=== PATIENT | female | born 1955 | race Caucasian/White ===

== ENCOUNTER 2020-09-10 00:16 | Emergency (ER) | payer BC ==
[2020-09-10 01:20] LABS: Basophils % 1.4 % (0-1.3); Hematocrit 40.8 % (36.0-45.0); Lymphocytes % 44.7 % (15.3-44.8); MPV 9.7 fL (7.6-11.3); Protime INR 1.03; RBC Red Blood Cell Count 5.04 M/uL (3.86-4.86)
[2020-09-10 01:36] LABS: ALT/SGPT 27 U/L (12-78); AST/SGOT 23 U/L (15-37); Albumin 3.9 g/dL (3.4-5.0); Alkaline Phosphatase 91 U/L (45-117); BUN Blood Urea Nitrogen 17 mg/dL (7-18); Bicarbonate 28 mmol/L (21-32); Bilirubin Direct < 0.1 mg/dL (0-0.2); Bilirubin Total 0.3 mg/dL (0.2-1.0); Glucose Level 119 mg/dL (74-106); Lipase 86 U/L (73-393); Magnesium 2.2 mg/dL (1.8-2.4); NT PRO-BNP 75 pg/mL (<125); Potassium 3.8 mmol/L (3.5-5.1); Protein, Total 7.2 g/dL (6.4-8.2); Sodium Level 140 mmol/L (136-145); Troponin (Emerg Dept Use Only) < 0.02 ng/mL (0.0-0.045)
--- NOTE | 2020-09-10 04:52 | EDPHYS ---
Physician Documentation [facility] Name: Mariel Aburto Age: 64 yrs Sex: Female : 1955 Arrival Date: 09/10/2020 Time: 00:17 Bed 6 Private MD: ED Physician Rj Smith HPI: 09/10 00:59 This 64 yrs old Female presents to ER via Ambulatory with complaints of Chest pkl Pain. 00:59 The patient or guardian reports chest pain that is located primarily in the substernal pkl area. Onset: last night. The pain does not radiate. Associated signs and symptoms: Pertinent positives: abdominal pain. The chest pain is described as aching, intermittent. Historical: - Allergies: 00:34 Sulfa (Sulfonamide Antibiotics); bb - Home Meds: 00:34 valsartan oral oral [Active]; bb - PMHx: 00:34 Hypertension; bb - PSHx: 00:34 None; bb - Immunization history:: Adult Immunizations up to date, Client reports receiving the 2nd dose of the Covid vaccine. - Social history:: Smoking status: Patient denies any tobacco usage or history of. Patient/guardian denies using alcohol, street drugs. ROS: 00:59 Eyes: Negative for injury, pain, redness, and discharge, ENT: Negative for injury, pkl pain, and discharge, Neck: Negative for injury, pain, and swelling. 00:59 Cardiovascular: Positive for chest pain. 00:59 Respiratory: Positive for cough, with no reported sputum. 00:59 Abdomen/GI: Positive for abdominal pain, of the right upper quadrant and left upper quadrant. 00:59 Back: Negative for acute changes. 00:59 : Negative for urinary symptoms. 00:59 MS/extremity: Negative for acute changes. 00:59 Skin: Negative for rash. 00:59 Neuro: Negative for altered mental status, loss of consciousness. Exam: 00:59 Head/Face: Normocephalic, atraumatic. Eyes: Pupils equal round and reactive to light, pkl extra-ocular motions intact. Lids and lashes normal. Conjunctiva and sclera are non-icteric and not injected. Cornea within normal limits. Periorbital areas with no swelling, redness, or edema. ENT: Nares patent. No nasal discharge, no septal abnormalities noted. Tympanic membranes are normal and external auditory canals are clear. Oropharynx with no redness, swelling, or masses, exudates, or evidence of obstruction, uvula midline. Mucous membranes moist. Neck: Trachea midline, no thyromegaly or masses palpated, and no cervical lymphadenopathy. Supple, full range of motion without nuchal rigidity, or vertebral point tenderness. No Meningismus. Chest/axilla: Normal chest wall appearance and motion. Nontender with no deformity. No lesions are appreciated. Cardiovascular: Regular rate and rhythm with a normal S1 and S2. No gallops, murmurs, or rubs. Normal PMI, no JVD. No pulse deficits. Respiratory: Lungs have equal breath sounds bilaterally, clear to auscultation and percussion. No rales, rhonchi or wheezes noted. No increased work of breathing, no retractions or nasal flaring. Abdomen/GI: Soft, non-tender, with normal bowel sounds. No distension or tympany. No guarding or rebound. No evidence of tenderness throughout. Back: No spinal tenderness. No costovertebral tenderness. Full range of motion. Skin: Warm, dry with normal turgor. Normal color with no rashes, no lesions, and no evidence of cellulitis. MS/ Extremity: Pulses equal, no cyanosis. Neurovascular intact. Full, normal range of motion. Neuro: Awake and alert, GCS 15, oriented to person, place, time, and situation. Cranial nerves II-XII grossly intact. Motor strength 5/5 in all extremities. Sensory grossly intact. Cerebellar exam normal. Normal gait. Vital Signs: 00:31 BP 179 / 75; Pulse 73; Resp 20 S; Temp 98(O); Pulse Ox 99% on R/A; Weight 79.38 kg (R); bb Height 5 ft. 5 in. (165.10 cm) (R); Pain 0/10; 01:00 BP 155 / 76; Pulse 68; Resp 16 S; Pulse Ox 97% on R/A; ad5 01:45 BP 146 / 77; Pulse 71; Resp 16 S; Pulse Ox 96% on R/A; ad5 03:02 BP 167 / 82; Pulse 73; Resp 16 S; Pulse Ox 100% on R/A; ad5 04:17 BP 149 / 83; Pulse 68; Resp 16 S; Pulse Ox 100% on R/A; ad5 04:59 BP 131 / 70; Pulse 68; Resp 16 S; Pulse Ox 97% on R/A; ad5 00:31 Body Mass Index 29.12 (79.38 kg, 165.10 cm) bb MDM: 00:51 Patient medically screened. pkl 04:46 Data reviewed: vital signs, nurses notes, lab test result(s), EKG, radiologic studies, pkl CT scan, plain films. 04:46 ED course: Patient feeling better. Discussed lab, EKG and imaging studies with patient. pkl Advised to follow up with PCP and Medical Care Administrator in 2 to 3 days. To return in necessary. Patient understood instructions. 09/10 00:58 Order name: Basic Metabolic Panel pkl 09/10 00:58 Order name: CBC with Diff; Complete Time: 01:29 pkl 09/10 00:58 Order name: LFT's; Complete Time: 01:46 pkl 09/10 00:58 Order name: Magnesium; Complete Time: 01:46 pkl 09/10 00:58 Order name: NT PRO-BNP; Complete Time: 01:46 pkl 09/10 00:58 Order name: PT-INR; Complete Time: 01:29 pkl 09/10 00:58 Order name: Troponin (emerg Dept Use Only); Complete Time: 01:46 pkl 09/10 00:58 Order name: XRAY Chest (1 view) pkl 09/10 00:58 Order name: D-Dimer; Complete Time: 01:29 pkl 09/10 00:59 Order name: Basic Metabolic Panel; Complete Time: 01:46 EDMS 09/10 00:59 Order name: Lipase; Complete Time: 01:46 pkl 09/10 02:27 Order name: Troponin (emerg Dept Use Only); Complete Time: 03:51 pkl 09/10 04:43 Order name: SARS-COV-2 RT PCR; Complete Time: 04:44 EDMS 09/10 00:58 Order name: EKG; Complete Time: 00:59 pkl 09/10 00:58 Order name: Cardiac monitoring; Complete Time: 00:59 pkl 09/10 00:58 Order name: EKG - Nurse/Tech; Complete Time: 00:59 pkl 09/10 00:58 Order name: IV Saline Lock; Complete Time: 00:59 pkl 09/10 00:58 Order name: Labs collected and sent; Complete Time: 00:59 pkl 09/10 00:58 Order name: O2 Per Protocol; Complete Time: 04:56 pkl 09/10 00:58 Order name: O2 Sat Monitoring; Complete Time: 00:59 pkl 09/10 01:49 Order name: CT Abd/Pelvis - IV Contrast Only pkl 09/10 01:49 Order name: CT Chest For PE Angio pkl 09/10 02:27 Order name: EKG; Complete Time: 02:28 pkl Administered Medications: 04:55 Drug: Zithromax (azithromycin) 500 mg Route: PO; ea 04:59 Follow up: Response: No adverse reaction ad5 04:59 CANCELLED (Duplicate Order): AZITHromycin 500 mg PO once ad5 Disposition: 09/10/20 04:51 Discharged to Home. Impression: Chest pain. Abdominal pain. Pneumonia. - Condition is Stable. - Prescriptions for Zithromax Z- Abhinav 250 mg Oral Tablet - take 1 tablet by ORAL route as directed for 5 days Day 1 - take two (2) tablets one time. Day 2, 3, 4 , 5 take one (1) tablet once daily.; 6 tablet. - Medication Reconciliation Form, Thank You Letter, Antibiotic Education, Prescription Opioid Use form. - Follow up: Private Physician; When: 2 - 3 days; Reason: Re-evaluation by your physician. - Problem is new. - Symptoms have improved. Signatures: Dispatcher [employer] EDMS Rj Smith MD MD pkAzeb De Oliveira RN RN bb Antunez, Elena, RN RN ea Davidson, Andrea ad5 Corrections: (The following items were deleted from the chart) 04:59 04:59 AZITHromycin 500 mg PO once ordered. ad5 ad5 05:00 04:51 09/10/2020 04:51 Discharged to Home. Impression: Chest pain. Abdominal pain. ad5 Pneumonia. Condition is Stable. Forms are Medication Reconciliation Form, Thank You Letter, Antibiotic Education, Prescription Opioid Use. Follow up: Private Physician; When: 2 - 3 days; Reason: Re-evaluation by your physician. Problem is new. Symptoms have improved. pkl
--- NOTE | 2020-09-10 04:52 | ER ---
Nurse's Notes [facility] Name: Mariel Aburto Age: 64 yrs Sex: Female : 1955 Arrival Date: 09/10/2020 Time: 00:17 Bed 6 Private MD: Diagnosis: Chest pain. Abdominal pain. Pneumonia Presentation: 09/10 00:31 Chief complaint: Patient states: pt c/o chest pain starting last night pain runs across bb diaphragm is intermittent she took some antacids but they did not help she denies nausea but is a little SOB. Coronavirus screen: At this time, the client does not indicate any symptoms associated with coronavirus-19. Ebola Screen: No symptoms or risks identified at this time. Initial Sepsis Screen: Does the patient meet any 2 criteria? No. Patient's initial sepsis screen is negative. Does the patient have a suspected source of infection? No. Patient's initial sepsis screen is negative. Risk Assessment: Do you want to hurt yourself or someone else? Patient reports no desire to harm self or others. Onset of symptoms was September 09, 2020. 00:31 Method Of Arrival: Ambulatory bb 00:31 Acuity: CHERRI 3 bb Historical: - Allergies: 00:34 Sulfa (Sulfonamide Antibiotics); bb - Home Meds: 00:34 valsartan oral oral [Active]; bb - PMHx: 00:34 Hypertension; bb - PSHx: 00:34 None; bb - Immunization history:: Adult Immunizations up to date, Client reports receiving the 2nd dose of the Covid vaccine. - Social history:: Smoking status: Patient denies any tobacco usage or history of. Patient/guardian denies using alcohol, street drugs. Screenin:35 Abuse screen: Denies threats or abuse. Denies injuries from another. Nutritional ad5 screening: No deficits noted. Tuberculosis screening: No symptoms or risk factors identified. Fall Risk No fall in past 12 months (0 pts). Secondary diagnosis (15 points) IV access (20 points). Ambulatory Aid- None/Bed Rest/Nurse Assist (0 pts). Gait- Normal/Bed Rest/Wheelchair (0 pts) Mental Status- Oriented to own ability (0 pts). Total Toribio Fall Scale indicates Low Risk Score (25-44 pts). Fall prevention measures have been instituted. Side Rails Up X 2 Frequent Obs/Assesments occuring Family Present and informed to notify staff if they need to leave bedside As available Patient and Family Educated on Fall Prevention Program and strategies. Assessment: 00:35 General: Appears in no apparent distress. Behavior is calm, cooperative, appropriate ad5 for age. Pain: Complains of pain in chest Pain does not radiate. Quality of pain is described as sharp, Pain began gradually, 2 hours ago. Is intermittent, Alleviated by repositioning. Neuro: No deficits noted. Level of Consciousness is awake, alert, obeys commands, Oriented to person, place, time, situation, Appropriate for age. Cardiovascular: Reports chest pain, shortness of breath, Heart tones S1 S2 present Capillary refill < 3 seconds JVD is absent Patient's skin is warm and dry. Pulses are all present. Rhythm is regular. Respiratory: No deficits noted. Reports shortness of breath reports associated with chest pain, denies other resp c/o Airway is patent Respiratory effort is even, unlabored, Respiratory pattern is regular, symmetrical, Breath sounds are clear bilaterally. GI: No deficits noted. No signs and/or symptoms were reported involving the gastrointestinal system. : No deficits noted. No signs and/or symptoms were reported regarding the genitourinary system. EENT: No deficits noted. No signs and/or symptoms were reported regarding the EENT system. Derm: No deficits noted. No signs and/or symptoms reported regarding the dermatologic system. Skin is pink, warm \T\ dry. 01:45 Reassessment: Patient appears in no apparent distress at this time. Patient and/or ad5 family updated on plan of care and expected duration. Pain level reassessed. Patient is alert, oriented x 3, equal unlabored respirations, skin warm/dry/pink. 03:02 Reassessment: Patient appears in no apparent distress at this time. Patient and/or ad5 family updated on plan of care and expected duration. Pain level reassessed. Patient is alert, oriented x 3, equal unlabored respirations, skin warm/dry/pink. 04:00 Reassessment: Patient appears in no apparent distress at this time. Patient and/or ad5 family updated on plan of care and expected duration. Pain level reassessed. Patient is alert, oriented x 3, equal unlabored respirations, skin warm/dry/pink. Vital Signs: 00:31 BP 179 / 75; Pulse 73; Resp 20 S; Temp 98(O); Pulse Ox 99% on R/A; Weight 79.38 kg (R); bb Height 5 ft. 5 in. (165.10 cm) (R); Pain 0/10; 01:00 BP 155 / 76; Pulse 68; Resp 16 S; Pulse Ox 97% on R/A; ad5 01:45 BP 146 / 77; Pulse 71; Resp 16 S; Pulse Ox 96% on R/A; ad5 03:02 BP 167 / 82; Pulse 73; Resp 16 S; Pulse Ox 100% on R/A; ad5 04:17 BP 149 / 83; Pulse 68; Resp 16 S; Pulse Ox 100% on R/A; ad5 04:59 BP 131 / 70; Pulse 68; Resp 16 S; Pulse Ox 97% on R/A; ad5 00:31 Body Mass Index 29.12 (79.38 kg, 165.10 cm) bb ED Course: 00:17 Patient arrived in ED. bp1 00:23 Carmen Foy, MARIA is Primary Nurse. ea 00:26 EKG completed in triage. Results shown to MD. Family accompanied patient. bb 00:33 Triage completed. bb 00:34 Arm band placed on Patient placed in an exam room, on a stretcher, on control panel builder, bb on pulse oximetry. 00:34 Patient has correct armband on for positive identification. Placed in gown. Bed in low ad5 position. Call light in reach. Side rails up X 1. cipher expert on. Pulse ox on. NIBP on. Door closed. Noise minimized. Warm blanket given. 00:35 Inserted saline lock: 20 gauge in right antecubital area, using aseptic technique. ad5 Blood collected. 00:51 Rj Smith MD is Attending Physician. pkl 01:13 XRAY Chest (1 view) In Process Unspecified. EDMS 02:15 CT Abd/Pelvis - IV Contrast Only In Process Unspecified. EDMS 02:15 CT Chest For PE Angio In Process Unspecified. EDMS 04:52 No provider procedures requiring assistance completed. IV discontinued, intact, ad5 bleeding controlled, No redness/swelling at site. Pressure dressing applied. Administered Medications: 04:55 Drug: Zithromax (azithromycin) 500 mg Route: PO; ea 04:59 Follow up: Response: No adverse reaction ad5 04:59 CANCELLED (Duplicate Order): AZITHromycin 500 mg PO once ad5 Outcome: 04:51 Discharge ordered by . bayron 04:52 Discharged to home ambulatory, with significant other. ad5 04:52 Condition: stable 04:52 Discharge instructions given to patient, Instructed on discharge instructions, follow up and referral plans. medication usage, Demonstrated understanding of instructions, follow-up care, medications, Prescriptions given X 1. 05:00 Patient left the ED. ad5 Signatures: Dispatcher [employer] EDWV Rj Smith MD MD pkl Ballard, Brenda RN RN Carmen Clark RN RN Margarita Paz Andrea ad5
[2020-09-10 05:06] VITALS: TEMP 98
[2020-09-10 05:13] VITALS: BP 131/70; O2SAT 97
[2020-09-10] MEDS ORDERED: AZITHROMYCIN 250 MG TAB ONE (05:15)
--- NOTE | 2020-09-10 07:22 | RAD REPORT ---
EXAM DESCRIPTION: Shelia Single View09/10/2020 1:13 am CLINICAL HISTORY: Chest pain COMPARISON: July 2020 FINDINGS: Mild bilateral pulmonary opacities. The heart is normal size IMPRESSION: Mild bilateral pulmonary opacities may represent atelectasis or pneumonia
--- NOTE | 2020-09-10 07:49 | EKG ---
Test Date: 2020-09-10 Test Time: 00:26:13 Assembly Mechanic: CASSANDRA MEASUREMENT RESULTS: Intervals: Rate: 71 SC: 152 QRSD: 74 QT: 390 QTc: 423 [place]: P: 89 SC: 152 QRS: 149 T: 114 INTERPRETIVE STATEMENTS: Normal sinus rhythm Possible Left atrial enlargement Anterolateral infarct, age undetermined Abnormal ECG Compared to ECG 10/01/2006 08:40:54 Myocardial infarct finding now present Electronically Signed On 09-10-20 07:48:52 CDT by Srini Mcmahan
--- NOTE | 2020-09-10 11:19 | RAD REPORT ---
EXAM DESCRIPTION: CT - Abdomen Pelvis W Contrast - 09/10/2020 6:20 am CLINICAL HISTORY: 64 years, Female, ABD PAIN COMPARISON: None. TECHNIQUE: Contrast-enhanced images of the abdomen and pelvis were performed utilizing 5 mm slice th ickness at 5 mm interval reconstruction from the lung bases to the ischial tuberosities after the adm inistration of 100 IV contrast. Subsequent 10 minutes delay imaging through the kidneys and bladder w ere also generated. In addition multiplanar reformats in the coronal and sagittal plane were obtained and reviewed. This exam was performed according to our departmental dose-optimization protocol, which includes auto mated exposure control, adjustment of the mA and/or kV according to patient size and/or use of iterat melanie reconstruction technique. FINDINGS: The lung bases demonstrate minimal bronchial thickening within the right middle lobe and i nferior lingular segment as well as minimal tree-in-bud distribution anterior segment of the right lo wer lobe on image 5 perhaps suggesting the possibility of infection and/or inflammation. The liver demonstrated the presence of several cysts lateral segment left hepatic lobe measuring 1.9 cm and 0.8 cm on image 15/95, right hepatic lobe cyst anterior segment measuring 1.9 cm on image 24 a nd inferior subcapsular right hepatic lobe measuring 1.7 cm and 0.8 cm on image 37, caudate lobe erick uring 2 cm on image 22. The gallbladder, pancreas, spleen and adrenal glands demonstrate to be unremarkable, no focal lesions are noted. The kidneys demonstrate normal uptake of contrast media with no evidence for hydronephrosis. Grossly the unopacified stomach, small bowel and large bowel demonstrate to be within normal limits. There is no evidence for bowel dilatation/or free air. The appendix is normal. The urinary bladder demonstrate to be unremarkable. The uterus demonstrate to be within normal limi ts. There is a probable right anterior fundal uterine fibroid measuring 1.1 cm on image 77. The aor ta demonstrate minimal atheromatous plaque formation. There is no retroperitoneal lymphadenopathy. There is no evidence for ascites and/or significant abnormal fluid collections. The rest of the soft tissue and bony structures are within normal limits. IMPRESSION: Minimal bronchial thickening within the right middle lobe and inferior lingular segment as well as minimal tree-in-bud distribution anterior segment of the right lower lobe perhaps suggesti ng the possibility of infection and/or inflammation. Multiple hepatic cysts. 1.1 cm right anterior fundal uterine fibroid. Electronically signed by: Mikhail Clemente MD 09/10/2020 2:39 AM CDT Due to temporary technical issues with the PACS/Fluency reporting system, reports are being signed by the in house radiologist without review as a courtesy to ensure prompt reporting. The interpreting r adiologist is fully responsible for the content of the report.
--- NOTE | 2020-09-10 11:22 | RAD REPORT ---
EXAM DESCRIPTION: CT - Chest For Pe Angio - 09/10/2020 6:20 am COMPARISON: None. CLINICAL HISTORY: [facility] MAIN CHEST PAIN TECHNIQUE: CT images through the chest with IV contrast using the pulmonary embolus protocol. Multip lanar reformats. MIPS reformats are provided. Automated exposure control was utilized on this exami [facility] as a dose lowering technique. FINDINGS: Pulmonary arteries and vascular: Diagnostic quality bolus. No filling defects. Mild multiv essel atherosclerosis. Heart and mediastinum: Heart size is normal. No lymphadenopathy. Thyroid gland: Visualized portions are normal. Lungs: Scattered bilateral tree-in-bud opacities are present. Airways: No filling defects. No bronchiectasis. Pleura: No pneumothorax. No significant pleural effusion. Musculoskeletal and soft tissues: Within normal limits for age. IMPRESSION: 1. No evidence of pulmonary embolus. 2. Multifocal pneumonia. Imaging features can be seen with COVID-19 pneumonia, though are nonspecif ic and can occur with a variety of infectious and noninfectious processes. EXAM DESCRIPTION: CT Abdomen and Pelvis COMPARISON: None. CLINICAL HISTORY: [facility] MAIN CHEST PAIN TECHNIQUE: CT of the abdomen and pelvis was acquired with IV contrast material. Coronal and sagitt al reconstructions were obtained. Automated exposure control was utilized on this examination as a dose lowering technique. FINDINGS: Liver: Multiple hepatic cysts measure up to 2.0 cm. Gallbladder and biliary: Normal gallbladder. Unremarkable biliary tree. Pancreas: Normal. Spleen: Normal. Adrenal glands: Normal adrenal glands. Kidneys: Normal kidneys Stomach and Small Bowel: Small hiatal hernia. The remainder of the stomach and small bowel is normal. Urinary bladder: Normal. Uterus and Adnexa: Normal. Colon and Appendix: The colon is unremarkable. No evidence of appendicitis. Retroperitoneum and lymph nodes: Normal. Vascular: Mild atherosclerosis. Peritoneal cavity: No ascites or free air. Musculoskeletal and soft tissues: Soft tissues are unremarkable. There are degenerative changes of th e hips. No aggressive bone lesions. Lumbar spondylosis is present. IMPRESSION: 1. No acute intra-abdominal abnormality. 2. Small hiatal hernia. Electronically signed by: José Beckman MD 09/10/2020 2:42 AM CDT Due to temporary technical issues with the PACS/Fluency reporting system, reports are being signed by the in house radiologist without review as a courtesy to ensure prompt reporting. The interpreting r adiologist is fully responsible for the content of the report.
--- NOTE | 2020-09-11 16:33 | EKG ---
Test Date: 2020-09-10 Test Time: 03:04:34 Hyperbaric Technician: MIRANDA MEASUREMENT RESULTS: Intervals: Rate: 62 AR: 168 QRSD: 84 QT: 416 QTc: 422 [place]: P: 85 AR: 168 QRS: 74 T: 74 INTERPRETIVE STATEMENTS: Normal sinus rhythm Cannot rule out Anterior infarct, age undetermined Abnormal ECG Compared to ECG 09/10/2020 00:26:13 No significant changes Electronically Signed On 09-11-20 16:30:01 CDT by Srini Mcmahan
== END 2020-09-10 05:00 | disposition home or self-care (01) ==
LOC: ER 00:16
DX: J18.9 Pneumonia, unspecified organism (principal); R10.9 Unspecified abdominal pain; I10 Essential (primary) hypertension; Z88.2 Allergy status to sulfonamides; Z20.822 Contact with and (suspected) exposure to COVID-19
CPT/HCPCS: 93005; 85025; 80048; 36415; 83735; 85610; 85379; 80076; 84484 ×2; 83690; 83880; 71275; 74177; 71045; U0003; Q9967; 99284

== ENCOUNTER 2021-06-21 18:43 | Emergency (ER) | payer OTHER, SELFPAY ==
[2021-06-21] MEDS ORDERED: ACETAMINOPHEN 500 MG TAB ONE (19:45)
[2021-06-21] MEDS ORDERED: HYDROCODONE/CHLORPHEN 5 ML/OSYR ONE (19:45)
[2021-06-21] MEDS ORDERED: ONDANSETRON 4 MG (ODT) TAB ONE (19:51)
[2021-06-21 21:03] LABS: SARS-COV-2 RT PCR NEGATIVE (NEGATIVE)
--- NOTE | 2021-06-21 22:00 | EDPHYS ---
Physician Documentation [facility] Name: Mariel Aburto Age: 65 yrs Sex: Female : 1955 Arrival Date: 06/21/2021 Time: 18:45 Bed 24 Private MD: Nicolás Yu R ED Physician Florentin Yadav HPI: 06/21 19:14 This 65 yrs old Female presents to ER via Ambulatory with complaints of Flu Symptoms. pm1 19:14 Onset: The symptoms/episode began/occurred today. Associated signs and symptoms: pm1 Pertinent positives: fever, bodyaches, cough, runny nose, Pertinent negatives: congestion, diarrhea, shortness of breath, vomiting. Modifying factors: The patient symptoms are alleviated by nothing, the patient symptoms are aggravated by nothing. The patient or guardian reports flu symptoms. Severity of symptoms: in the emergency department the symptoms are unchanged. The patient has not recently seen a physician. Patient with grandchildren who are sick with similar symptoms. They have not been tested/swabbed for their illness. Historical: - Allergies: 19:07 Sulfa (Sulfonamide Antibiotics); ss - PMHx: 19:07 Hypertension; Arthritis; ss - PSHx: 19:07 None; ss - Immunization history:: Adult Immunizations up to date, Client reports receiving the 2nd dose of the Covid vaccine. - Social history:: Smoking status: Patient denies any tobacco usage or history of. Patient/guardian denies using alcohol. ROS: 19:14 Eyes: Negative for injury, pain, redness, and discharge, ENT: Negative for injury, pm1 pain, and discharge, Neck: Negative for injury, pain, and swelling, Cardiovascular: Negative for chest pain, palpitations, and edema. 19:14 Abdomen/GI: Negative for abdominal pain, nausea, vomiting, diarrhea, and constipation, Back: Negative for injury and pain, MS/Extremity: Negative for injury and deformity, Skin: Negative for injury, rash, and discoloration, Neuro: Negative for headache, weakness, numbness, tingling, and seizure. 19:14 Constitutional: Positive for body aches, chills, fever, Negative for poor PO intake. 19:14 Respiratory: Positive for cough, Negative for shortness of breath. 19:14 All other systems are negative. Exam: 19:14 Head/Face: Normocephalic, atraumatic. pm1 19:14 Back: No spinal tenderness. No costovertebral tenderness. Full range of motion. Skin: Warm, dry with normal turgor. Normal color with no rashes, no lesions, and no evidence of cellulitis. MS/ Extremity: Pulses equal, no cyanosis. Neurovascular intact. Full, normal range of motion. 19:14 Constitutional: The patient appears in no acute distress, alert, awake, comfortable, non-diaphoretic, non-toxic, well developed, well hydrated, well groomed, well nourished, febrile. 19:14 Eyes: Exam is negative for acute changes, Periorbital structures: appear normal, Extraocular movements: no acute changes. 19:14 ENT: Exam is negative for acute changes, Mouth: no acute changes, Lips: normal, moist, Oral mucosa: normal, pink and intact, moist, Posterior pharynx: no acute changes. 19:14 Neck: Exam negative for ROM/movement: is normal, is supple, Lymph nodes: no appreciated lymphadenopathy, no acute changes. 19:14 Cardiovascular: Rate: tachycardic, Rhythm: regular, Pulses: no pulse deficits are appreciated, Heart sounds: normal. 19:14 Respiratory: Exam negative for acute changes, respiratory distress, shortness of breath, Breath sounds: are clear throughout. 19:14 Abdomen/GI: Inspection: obese Palpation: abdomen is soft and non-tender, in all quadrants. 19:14 Neuro: Exam negative for acute changes, Orientation: is normal, Mentation: is normal, Motor: is normal, moves all fours. Vital Signs: 19:06 BP 156 / 88; Pulse 127; Resp 18; Temp 101.6(O); Pulse Ox 97% on R/A; Weight 77.11 kg; ss Height 5 ft. 5 in. (165.10 cm); Pain 0/10; 21:01 BP 129 / 79; Pulse 97; Resp 20; Temp 98.4(O); Pulse Ox 94% on R/A; jb4 19:06 Body Mass Index 28.29 (77.11 kg, 165.10 cm) ss MDM: 19:06 Patient medically screened. pm1 19:28 Data reviewed: vital signs. Data interpreted: Pulse oximetry: on room air is 97 %. pm1 Interpretation: normal. 21:58 Counseling: I had a detailed discussion with the patient and/or guardian regarding: the pm1 historical points, exam findings, and any diagnostic results supporting the discharge/admit diagnosis, lab results, the need for outpatient follow up, to return to the emergency department if symptoms worsen or persist or if there are any questions or concerns that arise at home. 06/21 19:13 Order name: COVID-19/FLU A+B (Document "Date of Onset" if Symptomatic); Complete Time: pm1 21:14 06/21 19:13 Order name: Strep; Complete Time: 20:39 pm1 06/21 20:32 Order name: Throat Culture EDMS Administered Medications: 19:52 Drug: Tussionex Pennkinetic ER (chlorpheniramine-hydrocodone) Suspension 5 ml Route: PO;jb4 22:23 Follow up: Response: No adverse reaction tw5 19:53 Drug: Tylenol 1000 mg Route: PO; jb4 22:23 Follow up: Response: No adverse reaction tw5 19:53 Drug: Ondansetron 4 mg Route: PO; jb4 22:23 Follow up: Response: No adverse reaction tw5 Disposition: 06/22 19:05 Co-signature as Attending Physician, Florentin Yadav MD. mh7 Disposition Summary: 06/21/21 21:59 Discharge Ordered Location: Home pm1 Problem: new pm1 Symptoms: have improved pm1 Condition: Stable pm1 Diagnosis - Acute upper respiratory infection, unspecified pm1 Followup: pm1 - With: Emergency Department - When: As needed - Reason: Worsening of condition Followup: pm1 - With: Private Physician - When: 2 - 3 days - Reason: Recheck today's complaints, Continuance of care, Re-evaluation by your physician Discharge Instructions: - Discharge Summary Sheet pm1 - Upper Respiratory Infection, Adult pm1 Forms: - Medication Reconciliation Form pm1 - Thank You Letter pm1 - Antibiotic Education pm1 - Prescription Opioid Use pm1 - Work release form tw5 Prescriptions: - Guaifenesin AC 10-100 mg/5 mL Oral Liquid - take 10 milliliters by ORAL route every 4 hours As needed; 240 milliliter; pm1 Refills: 0, Product Selection Permitted - Ventolin HFA 90 mcg/actuation Inhalation HFA aerosol inhaler - inhale 1 puff by INHALATION route every 4-6 hours As needed; 1 Inhaler; pm1 Refills: 0, Product Selection Permitted - Medrol (Abhinav) 4 mg Oral Tablets, Dose Pack - take 1 tablet by ORAL route as directed - follow package instructions; 1 pm1 packet; Refills: 0, Product Selection Permitted Signatures: Dispatcher [employer] Radha Flores RN RN ss Paxton Mason, OMAR MEDICAL FEE CLERK pm1 Vu Gray RN RN jb4 Florentin Yadav MD MD 7 Rachana Little 5
--- NOTE | 2021-06-21 22:00 | ER ---
Nurse's Notes [facility] Name: Mariel Aburto Age: 65 yrs Sex: Female : 1955 Arrival Date: 06/21/2021 Time: 18:45 Bed 24 Private MD: Nicolás Yu R Diagnosis: Acute upper respiratory infection, unspecified Presentation: 06/21 19:06 Chief complaint: Patient states: Flu symptoms - fever, chills, bodyaches and cough X 1 ss day. Coronavirus screen: Client presents with at least one sign or symptom that may indicate coronavirus-19. Standard/surgical mask placed on the client. Ebola Screen: No symptoms or risks identified at this time. Initial Sepsis Screen: Does the patient meet any 2 criteria? No. Patient's initial sepsis screen is negative. Does the patient have a suspected source of infection? No. Patient's initial sepsis screen is negative. Risk Assessment: Do you want to hurt yourself or someone else? Patient reports no desire to harm self or others. Onset of symptoms was June 21, 2021. 19:06 Method Of Arrival: Ambulatory ss 19:06 Acuity: CHERRI 4 ss Triage Assessment: 19:07 General: Appears in no apparent distress. comfortable, Behavior is calm, cooperative, ss appropriate for age. Pain: Denies pain. EENT: No signs and/or symptoms were reported regarding the EENT system. Neuro: Level of Consciousness is awake, alert, obeys commands, Oriented to person, place, time, situation. Cardiovascular: Capillary refill < 3 seconds Patient's skin is warm and dry. Respiratory: Airway is patent Respiratory effort is even, unlabored. GI: Reports nausea. Historical: - Allergies: 19:07 Sulfa (Sulfonamide Antibiotics); ss - PMHx: 19:07 Hypertension; Arthritis; ss - PSHx: 19:07 None; ss - Immunization history:: Adult Immunizations up to date, Client reports receiving the 2nd dose of the Covid vaccine. - Social history:: Smoking status: Patient denies any tobacco usage or history of. Patient/guardian denies using alcohol. Assessment: 19:00 General: Appears in no apparent distress. comfortable, Behavior is calm, cooperative, jb4 appropriate for age. Pain: Denies pain. Neuro: Level of Consciousness is awake, alert, obeys commands, Oriented to person, place, time, situation. Cardiovascular: Patient's skin is warm and dry. Respiratory: Reports cough that is Airway is patent Respiratory effort is even, unlabored, Respiratory pattern is regular, symmetrical. GI: No signs and/or symptoms were reported involving the gastrointestinal system. : No signs and/or symptoms were reported regarding the genitourinary system. EENT: No signs and/or symptoms were reported regarding the EENT system. Derm: Skin is intact, Skin is pink, warm \T\ dry. Musculoskeletal: Circulation, motion, and sensation intact. Range of motion: intact in all extremities. 20:00 Reassessment: Patient appears in no apparent distress at this time. Patient and/or jb4 family updated on plan of care and expected duration. Pain level reassessed. Patient is alert, oriented x 3, equal unlabored respirations, skin warm/dry/pink. 21:00 Reassessment: Patient appears in no apparent distress at this time. Patient and/or jb4 family updated on plan of care and expected duration. Pain level reassessed. Patient is alert, oriented x 3, equal unlabored respirations, skin warm/dry/pink. Vital Signs: 19:06 BP 156 / 88; Pulse 127; Resp 18; Temp 101.6(O); Pulse Ox 97% on R/A; Weight 77.11 kg; ss Height 5 ft. 5 in. (165.10 cm); Pain 0/10; 21:01 BP 129 / 79; Pulse 97; Resp 20; Temp 98.4(O); Pulse Ox 94% on R/A; jb4 19:06 Body Mass Index 28.29 (77.11 kg, 165.10 cm) ED Course: 18:45 Patient arrived in ED. am2 18:45 Nicolás Yu MD is Private Physician. am2 19:06 Radha Sweet, MARIA is Primary Nurse. ss 19:06 [facility] pm1 19:06 Florentin Yadav MD is Attending Physician. pm1 19:07 Triage completed. ss 19:08 Arm band placed on right wrist. ss 19:20 Primary Nurse role handed off by Radha Sweet, MARIA cs9 19:27 Vu Gray, MARIA is Primary Nurse. jb4 Administered Medications: 19:52 Drug: Tussionex Pennkinetic ER (chlorpheniramine-hydrocodone) Suspension 5 ml Route: PO;jb4 :23 Follow up: Response: No adverse reaction tw5 19:53 Drug: Tylenol 1000 mg Route: PO; jb4 : Follow up: Response: No adverse reaction tw5 19:53 Drug: Ondansetron 4 mg Route: PO; jb4 22:23 Follow up: Response: No adverse reaction 5 Outcome: 21:59 Discharge ordered by . pm1 22:24 Patient left the ED. tw5 Signatures: Radha Sweet RN RN ss Paxton Mason, [employer] REHABILITATION PROGRAM DIRECTOR pm1 Vu Gray RN RN jb4 Corie Otero Tiffany tw5 June Barros 9
[2021-06-21 22:29] VITALS: BP 129/79; TEMP 98.4; O2SAT 94
== END 2021-06-21 22:24 | disposition home or self-care (01) ==
LOC: ER 18:43
DX: J06.9 Acute upper respiratory infection, unspecified (principal); Z20.822 Contact with and (suspected) exposure to COVID-19; I10 Essential (primary) hypertension; Z88.2 Allergy status to sulfonamides
CPT/HCPCS: 87070; 87081; 0240U; 99283

== ENCOUNTER 2021-06-25 03:30 | Inpatient (IN) | payer OTHER ==
--- NOTE | 2021-06-25 04:36 | EDPHYS ---
Physician Documentation [facility] Name: Mariel Aburto Age: 65 yrs Sex: Female : 1955 Arrival Date: 06/25/2021 Time: 03:33 Bed 8 Private MD: RUPAL Physician [place] HPI: 06/25 04:16 This 65 yrs old Female presents to ER via Ambulatory with complaints of terry Cough, Fever, Breathing Difficulty, Chest Pain. 04:16 The patient or guardian reports cough, difficulty breathing. Onset: The terry symptoms/episode began/occurred 2 day(s) ago. Severity of symptoms: At their worst the symptoms were moderate, in the emergency department the symptoms are unchanged. Modifying factors: The symptoms are alleviated by nothing, the symptoms are aggravated by nothing. Associated signs and symptoms: Pertinent positives: fever, rhinorrhea. The patient has experienced similar episodes in the past, several times. Historical: - Allergies: 03:50 Sulfa (Sulfonamide Antibiotics); ll3 07:00 Hydrocodone-Acetaminophen; bp - Home Meds: 07:00 Lisinopril Oral [Active]; Prednisone Oral [Active]; bp - PMHx: 03:50 Arthritis; Hypertension; ll3 - Immunization history:: Client reports receiving the 2nd dose of the Covid vaccine. - Social history:: Smoking status: Patient denies any tobacco usage or history of. ROS: 04:17 Eyes: Negative for injury, pain, redness, and discharge, ENT: Negative for injury, terry pain, and discharge, Neck: Negative for injury, pain, and swelling, Abdomen/GI: Negative for abdominal pain, nausea, vomiting, diarrhea, and constipation, Back: Negative for injury and pain, : Negative for injury, bleeding, discharge, and swelling, MS/Extremity: Negative for injury and deformity, Skin: Negative for injury, rash, and discoloration, Neuro: Negative for headache, weakness, numbness, tingling, and seizure, Psych: Negative for depression, anxiety, suicide ideation, homicidal ideation, and hallucinations, Allergy/Immunology: Negative for hives, rash, and allergies, Endocrine: Negative for neck swelling, polydipsia, polyuria, polyphagia, and marked weight changes, Hematologic/Lymphatic: Negative for swollen nodes, abnormal bleeding, and unusual bruising. 04:17 Constitutional: Positive for fever. 04:17 Cardiovascular: Positive for chest pain, palpitations. 04:17 Respiratory: Positive for cough, shortness of breath, at rest. Exam: 04:17 Head/Face: Normocephalic, atraumatic. Eyes: Pupils equal round and reactive to light, terry extra-ocular motions intact. Lids and lashes normal. Conjunctiva and sclera are non-icteric and not injected. Cornea within normal limits. Periorbital areas with no swelling, redness, or edema. ENT: Nares patent. No nasal discharge, no septal abnormalities noted. Tympanic membranes are normal and external auditory canals are clear. Oropharynx with no redness, swelling, or masses, exudates, or evidence of obstruction, uvula midline. Mucous membranes moist. Neck: Trachea midline, no thyromegaly or masses palpated, and no cervical lymphadenopathy. Supple, full range of motion without nuchal rigidity, or vertebral point tenderness. No Meningismus. Chest/axilla: Normal chest wall appearance and motion. Nontender with no deformity. No lesions are appreciated. Abdomen/GI: Soft, non-tender, with normal bowel sounds. No distension or tympany. No guarding or rebound. No evidence of tenderness throughout. Back: No spinal tenderness. No costovertebral tenderness. Full range of motion. Female : Normal external genitalia. Skin: Warm, dry with normal turgor. Normal color with no rashes, no lesions, and no evidence of cellulitis. MS/ Extremity: Pulses equal, no cyanosis. Neurovascular intact. Full, normal range of motion. Neuro: Awake and alert, GCS 15, oriented to person, place, time, and situation. Cranial nerves II-XII grossly intact. Motor strength 5/5 in all extremities. Sensory grossly intact. Cerebellar exam normal. Normal gait. Psych: Awake, alert, with orientation to person, place and time. Behavior, mood, and affect are within normal limits. 04:17 Cardiovascular: Rate: tachycardic, Rhythm: regular, Heart sounds: normal, Edema: is not appreciated, JVD: is not appreciated. 04:17 Respiratory: the patient does not display signs of respiratory distress, Respirations: labored breathing, is not present, Breath sounds: decreased breath sounds, that are mild, rhonchi, that are moderate, are scattered, stridor, is not appreciated, Respiratory rate: 22 05:13 ECG was reviewed by the Attending Physician. terry Vital Signs: 03:47 BP 174 / 80; Pulse 114; Resp 21; Temp 100.7(O); Pulse Ox 97% on R/A; Weight 77.11 kg ll3 (R); Height 5 ft. 5 in. (165.10 cm) (R); 05:15 BP 163 / 75; Pulse 94; Resp 29 S; Pulse Ox 99% on 7% Nebulizer Mask; as6 06:56 BP 158 / 74; Pulse 90; Resp 23 S; Pulse Ox 92% on R/A; as6 08:00 BP 129 / 60; Pulse 95; Resp 21; Temp 98.9; Pulse Ox 93% ; bp 03:47 Body Mass Index 28.29 (77.11 kg, 165.10 cm) ll3 MDM: 03:36 Patient medically screened. terry 04:18 Differential diagnosis: viral Infection, bacterial infection, URI, bronchitis, terry pneumonia UTI. Differential Diagnosis: Bronchitis Influenza Upper Respiratory Infection Pharyngitis Allergic Rhinitis Asthma Exacerbation Pneumonia. Data reviewed: vital signs, nurses notes, lab test result(s), EKG, radiologic studies, plain films. 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 Test interpretation: by ED physician or midlevel provider: ECG, plain radiologic studies. Counseling: I had a detailed discussion with the patient and/or guardian regarding: the historical points, exam findings, and any diagnostic results supporting the discharge/admit diagnosis, lab results, radiology results, the need for further work-up and treatment in the hospital. 06/25 04:16 Order name: Basic Metabolic Panel; Complete Time: 05:03 [facility] 06/25 04:16 Order name: CBC with Diff; Complete Time: 04:55 [facility] 06/25 04:16 Order name: LFT's; Complete Time: 05:03 [facility] 06/25 04:16 Order name: Magnesium; Complete Time: 05:03 [facility] 06/25 04:16 Order name: NT PRO-BNP; Complete Time: 05:03 [facility] 06/25 04:16 Order name: PT-INR; Complete Time: 05:03 [facility] 06/25 04:16 Order name: Troponin HS; Complete Time: 05:03 [facility] 06/25 04:16 Order name: XRAY Chest (1 view) [facility] 06/25 04:16 Order name: COVID-19/FLU A+B (Document "Date of Onset" if Symptomatic); Complete Time: [facility] 07:16 06/25 04:16 Order name: Blood Culture Adult (2) [facility] 06/25 04:16 Order name: Lactate; Complete Time: 05:03 [facility] 06/25 04:16 Order name: Procalcitonin; Complete Time: 07:16 [facility] 06/25 04:19 Order name: CT Chest For PE Angio [facility] 06/25 11:55 Order name: CT EDMS 06/25 04:16 Order name: EKG; Complete Time: 04:17 [facility] 06/25 04:16 Order name: Cardiac monitoring; Complete Time: 04:18 [facility] 06/25 04:16 Order name: EKG - Nurse/Tech; Complete Time: 05:12 [facility] 06/25 04:16 Order name: IV Saline Lock; Complete Time: 04:36 [facility] 06/25 04:16 Order name: Labs collected and sent; Complete Time: 04:36 [facility] 06/25 04:16 Order name: O2 Per Protocol; Complete Time: 04:18 [facility] 06/25 04:16 Order name: O2 Sat Monitoring; Complete Time: 04:18 [facility] EC:13 Rate is 96 beats/min. Rhythm is regular. QRS [place] is Normal. [place] interval is normal. QRS terry interval is normal. QT interval is normal. No Q waves. T waves are Normal. No ST changes noted. Clinical impression: Normal ECG and No evidence of ischemia. Interpreted by me. Reviewed by me. Administered Medications: 05:00 Drug: Aspirin Chewable Tablet 324 mg Route: PO; as6 06:09 Follow up: Response: No adverse reaction as6 05:00 Drug: Tylenol 650 mg Route: PO; as6 06:09 Follow up: Response: No adverse reaction as6 05:00 Drug: SOLU-Medrol (methylPrednisoLONE) 125 mg Route: IVP; Site: right antecubital; as6 06:09 Follow up: Response: No adverse reaction as6 05:00 Drug: Pepcid (famotidine) 20 mg Route: IVP; Site: right antecubital; as6 06:09 Follow up: Response: No adverse reaction as6 05:00 Drug: Rocephin (cefTRIAXone) 1 grams Route: IV; Rate: per protocol; Site: right as6 antecubital; 06:09 Follow up: Response: No adverse reaction; IV Status: Completed infusion; IV Intake: [id number] 05:00 Drug: Zithromax (azithromycin) 500 mg Route: IVPB; Infused Over: 1 hrs; Site: right as6 antecubital; 07:09 Follow up: Response: No adverse reaction jg9 07:09 Follow up: IV Status: Completed infusion; IV Intake: 250ml jg9 05:00 Drug: Xopenex (levalbuterol) 3.75 mg Route: Inhalation; as6 06:09 Follow up: Response: No adverse reaction as6 05:00 Drug: AtroVENT (ipratropium) Aerosol 0.5 mg Route: Inhalation; as6 06:10 Follow up: Response: No adverse reaction as6 05:00 Drug: NS 0.9% 1000 ml Route: IV; Rate: 125 ml/hr; Site: right antecubital; as6 07:19 Follow up: IV Status: Infusion continued upon admission bp 05:00 Drug: NS 0.9% 1000 ml Route: IV; Rate: 1 bolus; Site: right antecubital; as6 07:20 Follow up: IV Status: Completed infusion; IV Intake: 1000ml bp 05:00 Drug: Lovenox (enoxaparin) 40 mg Route: Sub-Q; Site: abdomen; as6 06:10 Follow up: Response: No adverse reaction as6 07:46 Not Given (GIVEN ON MEDITECHh): Rocephin (cefTRIAXone) 1 grams IV at per protocol once; bp Given slow IV push per pharmacy instructions Disposition Summary: 06/25/21 04:35 Hospitalization Ordered Hospitalization Status: Inpatient Admission terry Provider: Matteo Ortiz cha Condition: Fair terry Problem: new terry Symptoms: have improved terry Bed/Room Type: Standard terry Location: Telemetry/MedSurg (Inpatient)(06/25/21 13:02) bd Room Assignment: 412(06/25/21 13:02) bd Diagnosis - Pneumonia, unspecified organism terry - Dyspnea terry - Fever, unspecified terry Forms: - Medication Reconciliation Form terry - SBAR form terry Signatures: Dispatcher [employer] EDJocelynn Freire Corey, MD MD cha Peltier, Brian, RN RN bp Fredy Sanchez RN RN as6 Ninoska Mueller RN RN ll3 Lacye Demarco PA PA sb3 Sharri Ferrera RN jg9 Corrections: (The following items were deleted from the chart) 07:56 04:35 Telemetry/MedSurg (Inpatient) terry bp 07:56 04:35 terry bp 13:02 07:56 [facility] ER HOLD bp bd 13:02 07:56 ERHOLD- bp bd
--- NOTE | 2021-06-25 04:36 | ER ---
Nurse's Notes [facility] Name: Mariel Aburto Age: 65 yrs Sex: Female : 1955 Arrival Date: 06/25/2021 Time: 03:33 Bed 8 Private MD: Diagnosis: Pneumonia, unspecified organism;Dyspnea;Fever, unspecified Presentation: 06/25 03:47 Chief complaint: Patient states: States was here on Wednesday and was diagnosed with ll3 bronchitis, states yesterday started feeling SOB while walking and while lying down, c/o pain with coughing. Coronavirus screen: congestion, cough unrelated to allergies, muscle pain, shortness of breath. Ebola Screen: No symptoms or risks identified at this time. Initial Sepsis Screen: Does the patient meet any 2 criteria? No. Patient's initial sepsis screen is negative. Does the patient have a suspected source of infection? No. Patient's initial sepsis screen is negative. Risk Assessment: Do you want to hurt yourself or someone else? Patient reports no desire to harm self or others. Onset of symptoms was June 21, 2021. Care prior to arrival: Medication(s) given: Tylenol, at 0215. 03:47 Method Of Arrival: Ambulatory ll3 03:47 Acuity: CHERRI 3 ll3 Triage Assessment: 03:50 General: Appears uncomfortable, Behavior is calm, cooperative. Pain: Complains of pain ll3 in pain with coughing. Neuro: Level of Consciousness is awake, alert, obeys commands, Oriented to person, place, time, situation. Cardiovascular: Patient's skin is warm and dry. Respiratory: Reports shortness of breath on exertion with laying down pain with cough Onset: The symptoms/episode began/occurred yesterday, the patient has mild shortness of breath. Derm: Skin is pink, warm \\T\\ dry. Historical: - Allergies: 03:50 Sulfa (Sulfonamide Antibiotics); ll3 07:00 Hydrocodone-Acetaminophen; bp - Home Meds: 07:00 Lisinopril Oral [Active]; Prednisone Oral [Active]; bp - PMHx: 03:50 Arthritis; Hypertension; ll3 - Immunization history:: Client reports receiving the 2nd dose of the Covid vaccine. - Social history:: Smoking status: Patient denies any tobacco usage or history of. Screenin:17 Abuse screen: Denies threats or abuse. Denies injuries from another. Nutritional as6 screening: No deficits noted. Tuberculosis screening: No symptoms or risk factors identified. Fall Risk None identified. Assessment: 04:15 General: Appears in no apparent distress. comfortable, Behavior is calm, cooperative. as6 Pain: Complains of pain in back, chest and abdomen Quality of pain is described as dull, heavy. Neuro: Level of Consciousness is awake, alert, obeys commands, Oriented to person, place, time, situation. Cardiovascular: Reports chest pain, fatigue, Rhythm is sinus tachycardia. Respiratory: Reports shortness of breath cough that is hacking, Airway is patent Trachea midline Respiratory effort is even, unlabored, Respiratory pattern is regular, symmetrical, Breath sounds are clear bilaterally. GI: Reports nausea. EENT:. Vital Signs: 03:47 BP 174 / 80; Pulse 114; Resp 21; Temp 100.7(O); Pulse Ox 97% on R/A; Weight 77.11 kg ll3 (R); Height 5 ft. 5 in. (165.10 cm) (R); 05:15 BP 163 / 75; Pulse 94; Resp 29 S; Pulse Ox 99% on 7% Nebulizer Mask; as6 06:56 BP 158 / 74; Pulse 90; Resp 23 S; Pulse Ox 92% on R/A; as6 08:00 BP 129 / 60; Pulse 95; Resp 21; Temp 98.9; Pulse Ox 93% ; bp 03:47 Body Mass Index 28.29 (77.11 kg, 165.10 cm) ll3 ED Course: 03:33 Patient arrived in ED. ja2 03:35 Hermann Hills MD is Attending Physician. terry 03:50 Triage completed. ll3 03:50 Arm band placed on Patient placed in an exam room, on a stretcher, on monitor car operator, ll3 on pulse oximetry. 03:57 Fredy Sanchez RN is Primary Nurse. as6 04:17 Placed in gown. Bed in low position. Call light in reach. Side rails up X 1. Adult w/ as6 patient. monitor car operator on. Pulse ox on. NIBP on. 04:30 Inserted saline lock: 18 gauge in right antecubital area, using aseptic technique. as6 Blood collected. 04:33 XRAY Chest (1 view) In Process Unspecified. EDMS 04:34 Matteo Ortiz is Hospitalizing Provider. terry 04:36 Basic Metabolic Panel Sent. as6 04:36 CBC with Diff Sent. as6 04:37 LFT's Sent. as6 04:37 Magnesium Sent. as6 04:37 NT PRO-BNP Sent. as6 04:37 PT-INR Sent. as6 04:37 Troponin HS Sent. as6 04:37 COVID-19/FLU A+B (Document "Date of Onset" if Symptomatic) Sent. as6 04:37 Blood Culture Adult (2) Sent. as6 04:37 Procalcitonin Sent. as6 04:37 Lactate Sent. as6 07:15 Primary Nurse role handed off by Fredy Sanchez, MARIA bp 07:15 Ezra Nuno, MARIA is Primary Nurse. bp 13:27 No provider procedures requiring assistance completed. Patient admitted, IV remains in bp place. Administered Medications: 05:00 Drug: Aspirin Chewable Tablet 324 mg Route: PO; as6 06:09 Follow up: Response: No adverse reaction as6 05:00 Drug: Tylenol 650 mg Route: PO; as6 06:09 Follow up: Response: No adverse reaction as6 05:00 Drug: SOLU-Medrol (methylPrednisoLONE) 125 mg Route: IVP; Site: right antecubital; as6 06:09 Follow up: Response: No adverse reaction as6 05:00 Drug: Pepcid (famotidine) 20 mg Route: IVP; Site: right antecubital; as6 06:09 Follow up: Response: No adverse reaction as6 05:00 Drug: Rocephin (cefTRIAXone) 1 grams Route: IV; Rate: per protocol; Site: right as6 antecubital; 06:09 Follow up: Response: No adverse reaction; IV Status: Completed infusion; IV Intake: 50mnum8 05:00 Drug: Zithromax (azithromycin) 500 mg Route: IVPB; Infused Over: 1 hrs; Site: right as6 antecubital; 07:09 Follow up: Response: No adverse reaction jg9 07:09 Follow up: IV Status: Completed infusion; IV Intake: 250ml jg9 05:00 Drug: Xopenex (levalbuterol) 3.75 mg Route: Inhalation; as6 06:09 Follow up: Response: No adverse reaction as6 05:00 Drug: AtroVENT (ipratropium) Aerosol 0.5 mg Route: Inhalation; as6 06:10 Follow up: Response: No adverse reaction as6 05:00 Drug: NS 0.9% 1000 ml Route: IV; Rate: 125 ml/hr; Site: right antecubital; as6 07:19 Follow up: IV Status: Infusion continued upon admission bp 05:00 Drug: NS 0.9% 1000 ml Route: IV; Rate: 1 bolus; Site: right antecubital; as6 07:20 Follow up: IV Status: Completed infusion; IV Intake: 1000ml bp 05:00 Drug: Lovenox (enoxaparin) 40 mg Route: Sub-Q; Site: abdomen; as6 06:10 Follow up: Response: No adverse reaction as6 07:46 Not Given (GIVEN ON [employer]): Rocephin (cefTRIAXone) 1 grams IV at per protocol once; bp Given slow IV push per pharmacy instructions Intake: 06:09 IV: 50ml; Total: 50ml. as6 07:09 IV: 250ml; Total: 300ml. jg9 07:20 IV: 1000ml; Total: 1300ml. bp Outcome: 04:35 Decision to Hospitalize by Provider. terry 13:26 Admitted to Med/surg accompanied by tech, family with patient, via wheelchair, room bp 412, with chart, Report called to MIK SIFUENTES 13:26 Condition: stable 13:26 Instructed on the need for admit. 14:11 Patient left the ED. bp Signatures: Dispatcher [employer] EDHermann Starr MD MD cha Peltier, Brian, RN RN Maryann Diane Ashby, RN RN as6 Ninoska Mueller RN RN [email or web address] Sharri Ferrera RN RN jg9
[2021-06-25 04:45] LABS: Absolute Lymphocytes (CBC) 2.1 K/uL (0.7-4.9); Hematocrit 38.6 % (36.0-45.0); Lymphocytes % 13.5 % (15.3-44.8); MPV 8.4 fL (7.6-11.3); RBC Red Blood Cell Count 4.79 M/uL (3.86-4.86)
[2021-06-25] MEDS ORDERED: METHYLPREDNISOLONE 125 MG INJ ONE (04:45)
[2021-06-25] MEDS ORDERED: LEVALBUTEROL 0.63 MG/3 ML NEB ONE (04:45)
[2021-06-25] MEDS ORDERED: CEFTRIAXONE 1000 MG/VIAL ONE (04:45)
[2021-06-25] MEDS ORDERED: ACETAMINOPHEN 325 MG TABLET ONE (04:45)
[2021-06-25] MEDS ORDERED: ENOXAPARIN 40 MG/0.4 ML SQ ONE (04:46)
[2021-06-25] MEDS ORDERED: FAMOTIDINE 20 MG/2 ML VIAL IV ONE (04:46)
[2021-06-25] MEDS ORDERED: IPRATROPIUM BROM 0.5MG/2.5ML ONE ×2 (04:46→08:43)
[2021-06-25] MEDS ORDERED: AZITHROMYCIN 500 MG INJ IVPB ONE (04:46)
[2021-06-25] MEDS ORDERED: NA CHLORIDE 0.9% 250 ML ONE (04:46)
[2021-06-25] MEDS ORDERED: NA CHLORIDE 0.9% 2,000 ML ONE (04:47)
[2021-06-25] MEDS ORDERED: NA CHLORIDE 0.9% 50 ML ONE (04:47)
[2021-06-25] MEDS ORDERED: ASPIRIN 81 MG CHEWABLE TABLET ONE (04:58)
[2021-06-25 05:00] LABS: Protime INR 1.27
--- NOTE | 2021-06-25 05:01 | P.HP ---
Certification for Inpatient Patient admitted to: Inpatient With expected LOS: <2 Midnights Patient will require the following post-hospital care: None Practitioner: I am a practitioner with admitting privileges, knowledge of patient current condition, hospital course, and medical plan of care. Services: Services provided to patient in accordance with Admission requirements found in Title 42 Section 412.3 of the Code of Federal Regulations Patient History Date of Service: 06/25/21 Reason for admission: Pneumonia History of Present Illness: Patient is a 65-year-old female with past medical history of hypertension who presented to the ED with worsening shortness of breath and cough. She was seen here 3 days ago, diagnosed with bronchitis, and discharged with steroids, cough suppressant and an inhaler. She reports that her symptoms worsened so she returned. She initially flagged for sepsis with tachycardia, tachypnea, and fever. She was given sepsis fluids, breathing treatment, azithromycin, and Rocephin. Chest x-ray showed hazy bibasilar infiltrates or subsegmental atelectasis. White blood cell count elevated at 15. Pro-Kendall negative. CT chest pending. Will admit patient for further treatment of pneumonia. Allergies hydrocodone Adverse Reaction (Verified 06/06/13 18:26) Nausea/Vomiting Sulfa (Sulfonamide Antibiotics) Adverse Reaction (Verified 06/06/13 18:26) Nausea/Vomiting Home medications list reviewed: Yes (Losartan and meloxicam) Home Medications: Lisinopril [Zestril] 10 mg PO DAILY 06/06/13 levoFLOXacin [Levaquin*] 500 mg PO DAILY #4 tab 06/12/13 predniSONE [Deltasone] 20 mg PO BID #10 tab 06/12/13 - Past Medical/Surgical History Diabetic: No -: HTN -: Arthritis - Family History Mother -: Heart disease Father -: Cancer - Social History Smoking Status: Never smoker Alcohol use: No CD- Drugs: No Caffeine use: Yes Place of Residence: Home Review of Systems Respiratory: Cough, Shortness of Breath, SOB with Excertion, Pleuritic Pain, As per HPI Physical Examination - Physical Exam General: Alert, In no apparent distress, Oriented x3 HEENT: Atraumatic, PERRLA, Mucous membr. moist/pink, EOMI, Sclerae nonicteric Neck: Supple, 2+ carotid pulse no bruit, No LAD, Without JVD or thyroid abnormality Respiratory: Normal air movement, Diminished, Rhonchi/gurgles Cardiovascular: Regular rate/rhythm, Normal S1 S2 Gastrointestinal: Normal bowel sounds, No tenderness Musculoskeletal: No tenderness Integumentary: No rashes Neurological: Normal speech, Normal strength at 5/5 x4 extr, Normal tone, Normal affect - Studies Laboratory Data (last 24 hrs) 06/25/21 04:30: WBC 15.4 H, Hgb 12.7, Hct 38.6, Plt Count 352 Assessment and Plan - Problems (Diagnosis) (1) Bacterial pneumonia Current Visit: Yes Status: Acute (2) Dyspnea Current Visit: Yes Status: Acute (3) Fever Current Visit: Yes Status: Acute Qualifiers: Fever type: due to other condition Qualified Code(s): R50.81 - Fever presenting with conditions classified elsewhere (4) Hypertension Current Visit: Yes Status: Chronic Qualifiers: Hypertension type: primary hypertension Qualified Code(s): I10 - Essential (primary) hypertension - Plan We will admit and treat patient for acute acquired bacterial pneumonia. She received azithromycin and Rocephin in the ED. We will continue. We will also continue breathing treatments, IV fluids, and Solu-Medrol. Chest x-ray showed hazy bibasilar infiltrates suggesting atypical pneumonia. Incentive spirometry ordered. CT chest pending. Patient is saturating well, will continue to monitor oxygen saturation. Lovenox for DVT prophylaxis. Full code. Discharge Plan: Home Plan to discharge in: 48 Hours - Advance Directives Does patient have a Living Will: No Does patient have a Durable POA for Healthcare: No - Code Status/Comfort Care Code Status Assessed: Yes (Full) Critical Care: No Time Spent Managing Pts Care (In Minutes): 70
[2021-06-25 05:02] LABS: ALT/SGPT 20 U/L (12-78); AST/SGOT 11 U/L (15-37); Albumin 3.4 g/dL (3.4-5.0); Alkaline Phosphatase 89 U/L (45-117); BUN Blood Urea Nitrogen 23 mg/dL (7-18); Bicarbonate 28 mmol/L (21-32); Bilirubin Direct 0.2 mg/dL (0-0.2); Bilirubin Total 0.5 mg/dL (0.2-1.0); Glucose Level 116 mg/dL (74-106); Magnesium 1.8 mg/dL (1.8-2.4); NT PRO-BNP 319 pg/mL (<125); Potassium 3.5 mmol/L (3.5-5.1); Sodium Level 138 mmol/L (136-145); Troponin High Sensitivity 4.6 pg/mL (<58.9)
[2021-06-25 05:23] LABS: SARS-COV-2 RT PCR NEGATIVE (NEGATIVE)
--- NOTE | 2021-06-25 07:10 | EKG ---
Test Date: 2021-06-25 Test Time: 05:07:13 Background Investigator: MEASUREMENT RESULTS: Intervals: Rate: 96 CT: 138 QRSD: 80 QT: 352 QTc: 444 Lodge: P: 76 CT: 138 QRS: 13 T: 51 INTERPRETIVE STATEMENTS: Normal sinus rhythm Normal ECG Compared to ECG 09/10/2020 03:04:34 Myocardial infarct finding no longer present Electronically Signed On 06-25-21 07:09:21 CDT by Srini Mcmahan
[2021-06-25] MEDS ORDERED: ALBUTEROL 2.5 MG/3 ML NEB SOL NEB PRN (07:27)
[2021-06-25] MEDS ORDERED: ONDANSETRON 4 MG/2 ML VIAL IV PRN (07:27)
[2021-06-25] MEDS ORDERED: ZOLPIDEM TARTRATE 5 MG TABLET PO PRN (07:27)
[2021-06-25] MEDS ORDERED: ACETAMINOPHEN 500 MG TAB PO PRN (07:27)
[2021-06-25] MEDS: IPRATROPIUM BROM 0.5MG/2.5ML NEB SCH ×3 (08:38→20:30)
[2021-06-25] MEDS: METHYLPREDNISOLONE 40 MG INJ IV SCH ×2 (09:00→16:38)
[2021-06-25] MEDS ORDERED: METHYLPREDNISOLONE 40 MG INJ ONE (09:33)
[2021-06-25 11:17] VITALS: BMI 28.3
--- NOTE | 2021-06-25 11:54 | RAD REPORT ---
EXAM DESCRIPTION: CT - Chest For Pe Angio - 06/25/2021 6:52 am CLINICAL HISTORY: The patient is 65 years old and is Female; COPD;Cough;Dyspnea TECHNIQUE: Axial computed tomographic angiography images of the chest with intravenous contrast. S agittal and coronal reformatted images were created and reviewed. This CT exam was performed using one or more of the following dose reduction techniques: automated exposure control, adjustment of t he mA and/or kV according to patient size, and/or use of iterative reconstruction technique. MIP re constructed images were created and reviewed. COMPARISON: CT angiography chest July 23, 2020. FINDINGS: Pulmonary arteries: No PE identified. Aorta: No acute findings. No thoracic aortic aneurysm. Lungs: Multifocal bilateral tree-in-bud opacities suggesting small airways disease. There may be a small area of developing consolidation in the lateral right lower lobe. Scattered bronchiectasis. Pleural space: No pleural effusion or pneumothorax. Heart: Unremarkable. No cardiomegaly. No significant pericardial effusion. No evidence of RV dysfunction. Mediastinum: No pneumomediastinum. Bones/joints: No acute fracture. No dislocation. Soft tissues: Unremarkable. Lymph nodes: 1.3 cm AP window lymph node. IMPRESSION: 1. No PE identified. 2. Multifocal bilateral tree-in-bud opacities suggesting small airways disease. There may be a smal l area of developing consolidation in the lateral right lower lobe. Scattered bronchiectasis. Electronically signed by: Elsi Crump MD 06/25/2021 6:34 AM CDT Due to temporary technical issues with the PACS/Fluency reporting system, reports are being signed by the in house radiologist without review as a courtesy to ensure prompt reporting. The interpreting r adiologist is fully responsible for the content of the report.
--- NOTE | 2021-06-25 12:30 | RAD REPORT ---
EXAM DESCRIPTION: RAD - Chest Single View - 06/25/2021 4:31 am CLINICAL HISTORY: The patient is 65 years old and is Female; COUGH TECHNIQUE: Single view of the chest. COMPARISON: CT chest July 23, 2020. FINDINGS: Lungs: Hazy bibasilar infiltrates or subsegmental atelectasis. No pulmonary vascular congestion. Pleural space: No pleural effusion or pneumothorax. Heart: Unremarkable. No cardiomegaly. Mediastinum: Unremarkable. Bones/joints: No acute fracture visualized. Upper abdomen: No free air in the visualized upper abdomen. IMPRESSION: Hazy bibasilar infiltrates or subsegmental atelectasis. Electronically signed by: Elsi Crump MD 06/25/2021 4:55 AM CDT Due to temporary technical issues with the PACS/Fluency reporting system, reports are being signed by the in house radiologist without review as a courtesy to ensure prompt reporting. The interpreting r adiologist is fully responsible for the content of the report.
--- NOTE | 2021-06-25 16:23 | P.PN ---
Date of Service: 06/25/21 Patient seen and examined. She states she feels better. She has failed outpatient treatment for infective bronchitis. CTA thorax demonstrating patchy infiltrate suggestive of pneumonia. Diagnosis: Pneumonia Sepsis Plan: Continue IV antibiotics for community-acquired pneumonia. Follow culture results. Supportive measures Diet as tolerated.
[2021-06-25 16:32] LABS: Urine Appearance Clear (Clear); Urine Bilirubin Negative (Negative); Urine Blood 2+ (Negative); Urine Color Yellow (Yellow); Urine Glucose 2+ (Negative); Urine Protein Negative (Negative); Urine Specific Gravity 1.025 (1.005-1.030); Urine Urobilinogen 0.2 mg/dL (0.2-1.0); Urine pH 6.5 (5.0-7.0)
[2021-06-25 16:34] LABS: Urine Microscopic Reflex ORDER UMIC
[2021-06-25 16:41] LABS: Urine Bacteria NONE SEEN /HPF (<20)
[2021-06-26] MEDS: METHYLPREDNISOLONE 40 MG INJ IV SCH ×2 (00:40→10:09)
[2021-06-26] MEDS: IPRATROPIUM BROM 0.5MG/2.5ML NEB SCH ×4 (02:45→19:32)
[2021-06-26] MEDS ORDERED: HYDROCODONE/CHLORPHEN 5 ML/OSYR PO PRN (03:35)
[2021-06-26] MEDS: AZITHROMYCIN IV 500 MG in NA CHLORIDE 0.9% 250 ML IVPB SCH (04:01)
[2021-06-26] MEDS: BENZONATATE 100 MG CAP PO PRN ×2 (04:01→10:09)
[2021-06-26 04:03] LABS: Hematocrit 38.8 % (36.0-45.0); Lymphocytes % 9.4 % (15.3-44.8); MPV 8.7 fL (7.6-11.3); RBC Red Blood Cell Count 4.82 M/uL (3.86-4.86)
[2021-06-26 04:43] LABS: BUN Blood Urea Nitrogen 21 mg/dL (7-18); Bicarbonate 28 mmol/L (21-32); Glucose Level 169 mg/dL (74-106); Magnesium 2.3 mg/dL (1.8-2.4); Phosphorus 2.8 mg/dL (2.5-4.9); Potassium 4.7 mmol/L (3.5-5.1); Sodium Level 139 mmol/L (136-145)
[2021-06-26 05:28] LABS: Blood Morphology Comment NOT SEEN (NOT SEEN); Platelet Estimate ADEQ
[2021-06-26] MEDS: CEFTRIAXONE 1,000 MG in NA CHLORIDE 0.9% 50 ML IVPB SCH (05:47)
[2021-06-26] MEDS: ENOXAPARIN 40 MG/0.4 ML SQ SCH (10:08)
[2021-06-26] MEDS: GUAIFENESIN/DM 5 ML UCUP PO PRN (14:15)
--- NOTE | 2021-06-26 15:13 | P.PN ---
Subjective Date of Service: 06/26/21 Chief Complaint: Pneumonia Patient complaining of persistent cough and shortness of breath with exertion. WBC count trending up from yesterday. No fever. Physical Examination - Vital Signs Temperature: 98.5 F Blood Pressure: 167/73 Pulse: 82 Respirations: 18 Pulse Ox (%): 93 - Physical Exam General: Alert, In no apparent distress, Oriented x3 HEENT: Mucous membr. moist/pink, Sclerae nonicteric Neck: Supple, JVD not distended Respiratory: Clear to auscultation bilaterally, Normal air movement Cardiovascular: No edema, Regular rate/rhythm, Normal S1 S2 Gastrointestinal: Soft and benign, Non-distended, No tenderness Musculoskeletal: No swelling Integumentary: No rashes, No cyanosis Neurological: Normal strength at 5/5 x4 extr Assessment And Plan - Current Problems (Diagnosis) (1) Bacterial pneumonia Current Visit: Yes Status: Acute (2) Hypertension Current Visit: Yes Status: Chronic Qualifiers: Hypertension type: primary hypertension Qualified Code(s): I10 - Essential (primary) hypertension (3) Acute bronchitis Current Visit: Yes Status: Acute - Plan Continue IV Rocephin and Zithromax. Discontinue IV steroids. Continue supportive measures-antitussives. Monitor CBC for leukocytosis. Continue home antihypertensives.
[2021-06-26] MEDS: lisinopriL 10 MG TAB PO SCH (18:20)
[2021-06-26] MEDS ORDERED: MELOXICAM 7.5 MG TAB PO SCH (21:00)
[2021-06-27] MEDS: IPRATROPIUM BROM 0.5MG/2.5ML NEB SCH ×2 (02:00→08:14)
[2021-06-27] MEDS: AZITHROMYCIN IV 500 MG in NA CHLORIDE 0.9% 250 ML IVPB SCH (05:27)
[2021-06-27] MEDS: CEFTRIAXONE 1,000 MG in NA CHLORIDE 0.9% 50 ML IVPB SCH (05:27)
[2021-06-27 05:37] LABS: Absolute Lymphocytes (CBC) 3.5 K/uL (0.7-4.9); Hematocrit 37.4 % (36.0-45.0); Lymphocytes % 13.8 % (15.3-44.8); MPV 8.2 fL (7.6-11.3); RBC Red Blood Cell Count 4.58 M/uL (3.86-4.86)
[2021-06-27] MEDS: GUAIFENESIN/DM 5 ML UCUP PO PRN (05:40)
[2021-06-27] MEDS: BENZONATATE 100 MG CAP PO PRN (05:40)
[2021-06-27 05:52] LABS: Potassium 5.4 mmol/L (3.5-5.1)
[2021-06-27] MEDS ORDERED: HYDROCODONE/CHLORPHEN 5 ML/OSYR PO PRN (08:40)
[2021-06-27] MEDS: lisinopriL 10 MG TAB PO SCH (08:57)
[2021-06-27] MEDS: ENOXAPARIN 40 MG/0.4 ML SQ SCH (08:57)
[2021-06-27 09:01] VITALS: O2SAT 93
[2021-06-27 12:21] VITALS: BP 159/69; TEMP 97.8
[2021-06-27 12:46] LABS: BUN Blood Urea Nitrogen 25 mg/dL (7-18); Bicarbonate 28 mmol/L (21-32); Glucose Level 99 mg/dL (74-106); Potassium 4.1 mmol/L (3.5-5.1); Sodium Level 140 mmol/L (136-145)
--- NOTE | 2021-06-27 13:14 | P.DS ---
Admission Date: 06/25/21 Discharge Date: 06/27/21 Disposition: ROUTINE DISCHARGE Discharge Condition: FAIR Reason for Admission: Pneumonia - Problems (1) Bacterial pneumonia Current Visit: Yes Status: Acute (2) Hypertension Current Visit: Yes Status: Chronic Qualifiers: Hypertension type: primary hypertension Qualified Code(s): I10 - Essential (primary) hypertension (3) Acute bronchitis Current Visit: Yes Status: Acute Brief History of Present Illness: Patient is a 65-year-old female with past medical history of hypertension who presented to the ED with worsening shortness of breath and cough. She was seen here 3 days ago, diagnosed with bronchitis, and discharged with steroids, cough suppressant and an inhaler. She reports that her symptoms worsened so she returned. She initially flagged for sepsis with tachycardia, tachypnea, and fever. She was given sepsis fluids, breathing treatment, azithromycin, and Rocephin. Chest x-ray showed hazy bibasilar infiltrates or subsegmental atelectasis. White blood cell count elevated at 15. Pro-Kendall negative. CT chest pending. Patient admitted for further management. Hospital Course: Patient admitted to the medical floor and treated for pneumonia with IV antibiotics. She also needed supportive measures with antitussives for cough. Patient tolerated room air with good oxygen saturation. Her white cell count trended up. 2 sets of blood cultures were all negative. Patient clinically improved in spite of trending WBC. Noted patient was prescribed steroids from the emergency department a couple of days prior to admission. Leukocytosis likely steroid-induced. Patient was ambulatory without shortness of breath. She is deemed clinically stable for discharge. Vital Signs/Physical Exam: Temp Pulse Resp BP Pulse Ox 97.8 F 88 20 159/69 H 93 06/27/21 12:00 06/27/21 12:00 06/27/21 12:00 06/27/21 12:00 06/27/21 12:00 General: Alert, In no apparent distress, Oriented x3 HEENT: Mucous membr. moist/pink Neck: Supple, JVD not distended Respiratory: Crackles/rales (Fine crackles bilateral lungs) Cardiovascular: No edema, Regular rate/rhythm, Normal S1 S2 Gastrointestinal: Normal bowel sounds, Soft and benign, Non-distended, No tenderness Musculoskeletal: No swelling, No tenderness Integumentary: No rashes, No cyanosis Neurological: Normal strength at 5/5 x4 extr Laboratory Data at Discharge: WBC 25.1 K/uL (4.3-10.9) H* D 06/27/21 05:20 Hgb 12.2 g/dL (12.0-15.0) 06/27/21 05:20 Hct 37.4 % (36.0-45.0) 06/27/21 05:20 Plt Count 373 K/uL (152-406) 06/27/21 05:20 PT 14.0 SECONDS (9.5-12.5) H 06/25/21 04:30 INR 1.27 06/25/21 04:30 Sodium 140 mmol/L (136-145) 06/27/21 11:50 Potassium 4.1 mmol/L (3.5-5.1) 06/27/21 11:50 BUN 25 mg/dL (7-18) H 06/27/21 11:50 Creatinine 0.60 mg/dL (0.55-1.3) 06/27/21 11:50 Glucose 99 mg/dL (74-106) 06/27/21 11:50 Phosphorus 2.8 mg/dL (2.5-4.9) 06/26/21 03:04 Magnesium 2.3 mg/dL (1.8-2.4) D 06/26/21 03:04 Total Bilirubin 0.5 mg/dL (0.2-1.0) 06/25/21 04:30 AST 11 U/L (15-37) L 06/25/21 04:30 ALT 20 U/L (12-78) 06/25/21 04:30 Alkaline Phosphatase 89 U/L (45-117) 06/25/21 04:30 Home Medications: Lisinopril [Zestril] 10 mg PO DAILY 06/06/13 levoFLOXacin [Levaquin*] 500 mg PO DAILY #4 tab 06/12/13 predniSONE [Prednisone*] 20 mg PO BID #10 tab 06/12/13 Meloxicam [Mobic*] 7.5 mg PO BEDTIME 06/26/21 Amox/Clavulanate [Augmentin 875-125 Tab] 1 each PO BID #14 tab 06/27/21 Benzonatate [Tessalon Perle*] 100 mg PO TID PRN #20 cap 06/27/21 Guaif/Dm [Robitussin Dm*] 10 ml PO Q6H PRN #30 ucup 06/27/21 New Medications: Amox/Clavulanate [Augmentin 875-125 Tab] 1 each PO BID #14 tab Guaif/Dm [Robitussin Dm*] 10 ml PO Q6H PRN #30 ucup PRN Reason: Cough Benzonatate [Tessalon Perle*] 100 mg PO TID PRN #20 cap PRN Reason: Cough Diet: AHA Activity: Ad lewis Followup: Unknown,U [Primary Care Provider] - 1-2 Weeks Time spent managing pt's care (in minutes): 36
== END 2021-06-27 13:43 | disposition home or self-care (01) | DRG 871 ==
LOC: ER 03:30 → ERHOLD 05:03 → 4TH 13:36
PROVIDERS: ADMIT Internal Medicine; ATTEND Internal Medicine
DX: A41.9 Sepsis, unspecified organism (principal); J15.9 Unspecified bacterial pneumonia; I10 Essential (primary) hypertension; J20.9 Acute bronchitis, unspecified; Z88.2 Allergy status to sulfonamides; Z20.822 Contact with and (suspected) exposure to COVID-19
CPT/HCPCS: 0240U; 36415; 71045; 71275; 80048; 80076; 81003; 81015; 83605; 83735; 83880; 84100; 84145; 84484; 85025; 85610; 87040; 93005; 94010; 94640; 94760; 96365; 96366; 96368; 96372; 96375; 99285; J0456; J1650; J2920; J2930; J7030; J7050; Q9967

== ENCOUNTER 2023-04-11 00:21 | Observation (INO) | payer OTHER ==
[2023-04-11] MEDS ORDERED: ASPIRIN 81 MG CHEWABLE TABLET ONE (00:35)
[2023-04-11] MEDS ORDERED: PROMETHAZINE INJ 25 MG/ML AMP ONE (00:36)
[2023-04-11 00:57] LABS: Protime INR 1.07
[2023-04-11 00:59] LABS: Absolute Lymphocytes (CBC) 3.7 K/uL (0.7-4.9); Hematocrit 44.6 % (36.0-45.0); Lymphocytes % 16.9 % (15.3-44.8); MCV 82.4 fL (80-100); MPV 8.6 fL (7.6-11.3); Platelets 367 thou/uL (152-406); RBC Red Blood Cell Count 5.41 M/uL (3.86-4.86)
[2023-04-11] MEDS ORDERED: PANTOPRAZOLE 40 MG INJ ONE (01:17)
[2023-04-11 01:21] LABS: ALT/SGPT 21 U/L (13-56); Albumin 4.1 g/dL (3.4-5.0); Alkaline Phosphatase 80 U/L (45-117); BUN Blood Urea Nitrogen 30 mg/dL (7-18); Bicarbonate 27 mEq/L (21-32); Bilirubin Total 0.3 mg/dL (0.2-1.0); Glomerular Filtration Rate 58 ml/min (=/>90); Glucose Level 117 mg/dL (74-106); Lipase 68 U/L (13-75); NT PRO-BNP 43 pg/mL (<125); Sodium Level 137 mEq/L (136-145)
[2023-04-11 01:23] LABS: AST/SGOT 15 U/L (15-37); Bilirubin Direct < 0.1 mg/dL (0-0.2); Bilirubin Indirect, Calculated ND mg/dL (0.2-0.8); Troponin High Sensitivity < 3.0 pg/mL (<58.9)
[2023-04-11 01:44] LABS: Blood Morphology Comment NOT SEEN (NOT SEEN); Platelet Estimate ADEQ
[2023-04-11 02:30] LABS: Specific Gravity 1.024 (1.005-1.030); Urine Bacteria 20-50 /HPF (<20); Urine Bilirubin NEGATIVE (Negative); Urine Blood Negative (Negative); Urine Clarity Extremely Turbid (Clear); Urine Color Light-Yellow (Yellow); Urine Glucose NEGATIVE (Negative); Urine Mucus Slight /HPF (None Seen); Urine Protein TRACE (Negative); Urine RBC <5 /HPF (None Seen); Urine Urobilinogen Normal (Normal)
[2023-04-11] MEDS ORDERED: CEFTRIAXONE 1000 MG/VIAL ONE (03:29)
--- NOTE | 2023-04-11 03:32 | EDPHYS ---
Physician Documentation [facility] Name: Mariel Aburto Age: 67 yrs Sex: Female : 1955 Arrival Date: 04/11/2023 Time: 00:21 Bed 13 Private MD: ED Physician Jose Ellsworth HPI: 04/11 00:29 This 67 yrs old Female presents to ER via Unassigned with complaints of Chest Pain, snw Nausea/Vomiting. 00:29 Onset: The symptoms/episode began/occurred acutely, 30min just prior to arrival. snw Associated signs and symptoms: Pertinent positives: chest pain, vomiting. Modifying factors: The patient symptoms are alleviated by nothing, the patient symptoms are aggravated by nothing. The patient has not experienced similar symptoms in the past. sees Dr. Dorsey, taking medications for HLD, tylenol arthritis for hip pain, (scheduled for hip replacement in two weeks). Historical: - Allergies: 00:32 Hydrocodone-Acetaminophen; jb4 00:32 Sulfa (Sulfonamide Antibiotics); jb4 - PMHx: 00:32 Arthritis; Hypertension; jb4 - PSHx: 00:32 tubal ligation (Hypertension); jb4 ROS: 00:28 Constitutional: Negative for fever, chills, and weight loss, Eyes: Negative for injury, snw pain, redness, and discharge, ENT: Negative for injury, pain, and discharge, Neck: Negative for injury, pain, and swelling, 00:28 Back: Negative for injury and pain, : Negative for injury, bleeding, discharge, and swelling, MS/Extremity: Negative for injury and deformity, Skin: Negative for injury, rash, and discoloration, Neuro: Negative for headache, weakness, numbness, tingling, and seizure, Psych: Negative for depression, anxiety, suicide ideation, homicidal ideation, and hallucinations, 00:28 Cardiovascular: Positive for chest pain, of the chest, radiates to back, 00:28 Respiratory: Positive for shortness of breath, on exertion. 00:28 Abdomen/GI: Positive for nausea and vomiting, Exam: 00:28 Constitutional: This is a well developed, well nourished patient who is awake, alert, snw and in no acute distress. Head/Face: Normocephalic, atraumatic. Eyes: Pupils equal round and reactive to light, extra-ocular motions intact. Lids and lashes normal. Conjunctiva and sclera are non-icteric and not injected. Cornea within normal limits. Periorbital areas with no swelling, redness, or edema. ENT: Nares patent. No nasal discharge, no septal abnormalities noted. Tympanic membranes are normal and external auditory canals are clear. Oropharynx with no redness, swelling, or masses, exudates, or evidence of obstruction, uvula midline. Mucous membranes moist. Neck: Trachea midline, no thyromegaly or masses palpated, and no cervical lymphadenopathy. Supple, full range of motion without nuchal rigidity, or vertebral point tenderness. No Meningismus. Chest/axilla: Normal chest wall appearance and motion. Nontender with no deformity. No lesions are appreciated. 00:28 Respiratory: Lungs have equal breath sounds bilaterally, clear to auscultation and percussion. No rales, rhonchi or wheezes noted. No increased work of breathing, no retractions or nasal flaring. Abdomen/GI: Soft, non-tender, with normal bowel sounds. No distension or tympany. No guarding or rebound. No evidence of tenderness throughout. Back: No spinal tenderness. No costovertebral tenderness. Full range of motion. Skin: Warm, dry with normal turgor. Normal color with no rashes, no lesions, and no evidence of cellulitis. MS/ Extremity: Pulses equal, no cyanosis. Neurovascular intact. Full, normal range of motion. Neuro: Awake and alert, GCS 15, oriented to person, place, time, and situation. Cranial nerves II-XII grossly intact. Motor strength 5/5 in all extremities. Sensory grossly intact. Cerebellar exam normal. Normal gait. Psych: Awake, alert, with orientation to person, place and time. Behavior, mood, and affect are within normal limits. 00:28 Cardiovascular: Rate: tachycardic, Rhythm: regular, Pulses: no pulse deficits are appreciated, Heart sounds: normal, Edema: is not appreciated, Vital Signs: 00:30 BP 183 / 86; Pulse 100; Resp 16; Temp 98.5(O); Pulse Ox 100% on R/A; Weight 77.11 kg jb4 (R); Height 5 ft. 5 in. (R); Pain 10/10; 01:30 BP 140 / 70; Pulse 97; Resp 20; Pulse Ox 100% on R/A; pf1 02:30 BP 143 / 69; Pulse 91; Resp 16; Pulse Ox 100% on R/A; Pain 3/10; pf1 03:30 BP 130 / 65; Pulse 92; Resp 20; Temp 98.5(O); Pulse Ox 99% on R/A; Pain 0/10; pf1 04:30 BP 128 / 61; Pulse 87; Resp 20; Pulse Ox 98% on R/A; Pain 0/10; pf1 00:30 Body Mass Index 28.29 (77.11 kg, 165.1 cm) jb4 00:30 Pain Scale: Adult jb4 02:30 Pain Scale: Adult pf1 03:30 Pain Scale: Adult pf1 04:30 Pain Scale: Adult pf1 MDM: 00:31 Differential diagnosis: viral Infection, gastroenteritis, angina, stable/unstable, DE, snw abnormal EKG. Data reviewed: vital signs, nurses notes, lab test result(s), EKG. I considered the following discharge prescriptions or medication management in the emergency department Medications were administered in the Emergency Department. See MAR. Historians other than the Patient: Spouse/Significant Other: . Counseling: I had a detailed discussion with the patient and/or guardian regarding the historical points, exam findings, and any diagnostic results supporting the discharge/admit diagnosis, the presence of at least one elevated blood pressure reading (>120/80) during this emergency department visit. 00:37 Patient medically screened. snw 01:13 Transition of care: After a detail discussion of the patient's case, care is snw transferred to Jose Jodee WHITNEY. 03:30 Differential diagnosis: abnormal EKG, acute myocardial infarction, coronary artery ms3 disease pneumonia. ED course: Patient states her PCP is Dr Dorsey. Discussed case with Dr Aguilar and he accepts admission. Discussed plan with patient. Patient understands and agrees with plan. Patient remains in stable condition at this time. 04/11 00:27 Order name: Basic Metabolic Panel; Complete Time: 01:30 snw 04/11 00:27 Order name: CBC with Diff; Complete Time: 01:45 snw 04/11 00:27 Order name: LFT's; Complete Time: :30 snw 04/11 00:27 Order name: Magnesium; Complete Time: 01:30 snw /21 00:27 Order name: NT PRO-BNP; Complete Time: 01:30 04/11 00:27 Order name: PT-INR; Complete Time: 01:00 04/11 00:27 Order name: Troponin HS; Complete Time: 01:30 04/11 00:27 Order name: Lipase; Complete Time: 01:30 04/11 01:02 Order name: Manual Differential; Complete Time: 01:45 EDMS 04/11 01:03 Order name: Blood Culture Adult (2) snw 04/11 01:03 Order name: Lactate w/ 2H reflex if indic.; Complete Time: 02:56 snw 04/11 01:09 Order name: Urine W/Microscopic (UAM); Complete Time: 02:56 snw 04/11 02:40 Order name: Urine Culture [facility] 04/11 03:58 Order name: CBC with Automated Diff EDMS 04/11 03:58 Order name: CBC with Automated Diff [facility] 04/11 03:58 Order name: Comprehensive Metabolic Panel [facility] 04/11 03:58 Order name: Comprehensive Metabolic Panel [facility] 04/11 00:27 Order name: XRAY Chest (1 view) w 04/11 01:03 Order name: CT Aorta for Dissection 04/11 00:27 Order name: EKG; Complete Time: 00:28 04/11 00:27 Order name: Cardiac monitoring; Complete Time: 00:41 04/11 00:27 Order name: EKG - Nurse/Tech; Complete Time: 00:33 04/11 00:27 Order name: IV Saline Lock; Complete Time: 00:33 04/11 00:27 Order name: Labs collected and sent; Complete Time: 00:33 04/11 00:27 Order name: O2 Per Protocol; Complete Time: 00:33 04/11 00:27 Order name: O2 Sat Monitoring; Complete Time: 00:33 04/11 01:38 Order name: IV; Complete Time: 01:59 snw EC:25 Rate is 100 beats/min. Rhythm is regular. Left axis deviation noted. GA interval is snw normal. QRS interval is normal. QT interval is normal. Clinical impression: NSR w/ Non-specific ST/T Changes and biphasic p waves. Administered Medications: 00:40 Drug: Promethazine IVP 12.5 mg IVP once Route: IVP; Site: right antecubital; pf1 01:40 Follow up: Response: No adverse reaction; Marked relief of symptoms; Vomiting decreased pf1 00:41 Drug: Aspirin PO Chewable Tablet 324 mg PO once; 81 mg tablets x 4 Route: PO; pf1 01:40 Follow up: Response: No adverse reaction; Marked relief of symptoms; Pain is decreased pf1 01:58 Drug: Pantoprazole IVP 40 mg IVP once Route: IVP; Site: left antecubital; pf1 02:50 Follow up: Response: No adverse reaction; Marked relief of symptoms pf1 03:30 Drug: Rocephin IV 1 grams IV at calculated rate once; Given slow IV push per pharmacy pf1 instructions Route: IV; Rate: calculated rate; Site: left antecubital; 03:35 Follow up: Response: No adverse reaction; Marked relief of symptoms; IV Status: pf1 Completed infusion; IV Intake: 10ml Disposition: 03:30 Co-signature as Attending Physician, Jose Ellsworth DO. ms3 Disposition Summary: 04/11/23 03:32 Hospitalization Ordered Notes: Hospitalization Status: Inpatient Admission ms3 Provider: Ethan Aguilar ms3 Location: Telemetry/MedSurg (Inpatient) ms3 Condition: Stable ms3 Problem: new ms3 Symptoms: are unchanged ms3 Bed/Room Type: Standard ms3 Room Assignment: 222(04/11/23 04:03) [facility] Diagnosis - Pyelonephritis acute ms3 - Vomiting ms3 - Sepsis, unspecified organism ms3 Forms: - Medication Reconciliation Form ms3 - SBAR form ms3 - Leadership Thank You Letter ms3 Signatures: Dispatcher [employer] Ree Mazariegos FNP-C SYSTEMS ANALYSIS MANAGER-Csnw Vu Gray RN RN jb4 Jose Ellsworth DO DO ms3 Mary Peterson RN RN pf1 Manju Felipe [facility] Corrections: (The following items were deleted from the chart) 00:36 00:25 Rate is 100 beats/min. Rhythm is regular. Left axis deviation noted. GA interval snw is normal. QRS interval is normal. QT interval is normal. Clinical impression: NSR w/ Non-specific ST/T Changes. snw 04:03 03:32 ms3 kmf
--- NOTE | 2023-04-11 03:32 | ER ---
Nurse's Notes [facility] Name: Mariel Aburto Age: 67 yrs Sex: Female : 1955 Arrival Date: 04/11/2023 Time: 00:21 Bed 13 Private MD: Diagnosis: Pyelonephritis acute;Vomiting;Sepsis, unspecified organism Presentation: 04/11 00:30 Chief complaint: Patient states: I started having N/V and chest pain with intermittent jb4 SOB about 30minutes ago. Coronavirus screen: At this time, the client does not indicate any symptoms associated with coronavirus-19. Ebola Screen: No symptoms or risks identified at this time. Initial Sepsis Screen: Does the patient meet any 2 criteria? No. Patient's initial sepsis screen is negative. Does the patient have a suspected source of infection? No. Patient's initial sepsis screen is negative. Risk Assessment: Do you want to hurt yourself or someone else? Patient reports no desire to harm self or others. Onset of symptoms was April 11, 2023. Transition of care: patient was not received from another setting of care. 00:30 Method Of Arrival: Wheelchair jb4 00:30 Acuity: CHERRI 3 jb4 Historical: - Allergies: 00:32 Hydrocodone-Acetaminophen; jb4 00:32 Sulfa (Sulfonamide Antibiotics); jb4 - PMHx: 00:32 Arthritis; Hypertension; jb4 - PSHx: 00:32 tubal ligation (Hypertension); jb4 Screenin:57 [facility] ED Fall Risk Assessment (Adult) History of falling in the last 3 months, pf1 including since admission No falls in past 3 months (0 pts) Confusion or Disorientation No (0 pts) Intoxicated or Sedated No (0 pts) Impaired Gait No (0 pts) Mobility Assist Device Used No (0 pt) Altered Elimination No (0 pt) Score/Fall Risk Level 0 - 2 = Low Risk Oriented to surroundings, Maintained a safe environment, Educated pt \T\ family on fall prevention, incl call for assistance when getting out of bed, Assessed \T\ reinforced patient's understanding of fall precautions, Provided non-skid footwear, Hourly rounding (assess needs \T\ fall precautionary measures) done, Used ambulatory aids as needed (educated on \T\ assisted with), Used gait belt as appropriate. Abuse screen: Denies threats or abuse. Nutritional screening: No deficits noted. Tuberculosis screening: No symptoms or risk factors identified. Assessment: 00:35 General: Appears in no apparent distress. uncomfortable, well groomed, well developed, pf1 Behavior is calm, cooperative, appropriate for age, quiet. 00:35 Pain: Complains of pain in back and abdomen and chest Pain radiates to back Pain pf1 currently is 10 out of 10 on a pain scale. Pain began 30 min ago. Neuro: No deficits noted. Level of Consciousness is awake, alert, obeys commands, Oriented to person, place, time, situation. Cardiovascular: Reports chest pain, Heart tones S1 S2 present Capillary refill < 3 seconds Patient's skin is warm and dry. Chest pain. Respiratory: No deficits noted. Airway is patent Respiratory effort is even, unlabored, Respiratory pattern is regular, symmetrical. GI: Abdomen is round non-distended, Reports lower abdominal pain, upper abdominal pain, diarrhea, nausea, vomiting. : No deficits noted. No signs and/or symptoms were reported regarding the genitourinary system. EENT: No deficits noted. No signs and/or symptoms were reported regarding the EENT system. Musculoskeletal: Reports pain in back. 01:30 Reassessment: Patient appears in no apparent distress at this time. Patient and/or pf1 family updated on plan of care and expected duration. Pain level reassessed. Patient is alert, oriented x 3, equal unlabored respirations, skin warm/dry/pink. 02:30 Reassessment: Patient appears in no apparent distress at this time. Patient and/or pf1 family updated on plan of care and expected duration. Pain level reassessed. Patient is alert, oriented x 3, equal unlabored respirations, skin warm/dry/pink. Patient states feeling better. Patient states symptoms have improved. 03:30 Reassessment: Patient appears in no apparent distress at this time. Patient and/or pf1 family updated on plan of care and expected duration. Pain level reassessed. Patient is alert, oriented x 3, equal unlabored respirations, skin warm/dry/pink. Patient states feeling better. Patient states symptoms have improved. 04:00 : Reports urinary frequency, x 2 weeks. pf1 04:11 Reassessment: attempted report, nurse to [facility] back. pf1 Vital Signs: 00:30 BP 183 / 86; Pulse 100; Resp 16; Temp 98.5(O); Pulse Ox 100% on R/A; Weight 77.11 kg jb4 (R); Height 5 ft. 5 in. (R); Pain 10/10; 01:30 BP 140 / 70; Pulse 97; Resp 20; Pulse Ox 100% on R/A; pf1 02:30 BP 143 / 69; Pulse 91; Resp 16; Pulse Ox 100% on R/A; Pain 3/10; pf1 03:30 BP 130 / 65; Pulse 92; Resp 20; Temp 98.5(O); Pulse Ox 99% on R/A; Pain 0/10; pf1 04:30 BP 128 / 61; Pulse 87; Resp 20; Pulse Ox 98% on R/A; Pain 0/10; pf1 00:30 Body Mass Index 28.29 (77.11 kg, 165.1 cm) jb4 00:30 Pain Scale: Adult jb4 02:30 Pain Scale: Adult pf1 03:30 Pain Scale: Adult pf1 04:30 Pain Scale: Adult pf1 ED Course: 00:22 Patient arrived in ED. jj6 00:26 Jose Ellsworth DO is Attending Physician. ms3 00:27 Ree Branch FNP-C is PHCP. snw 00:30 No provider procedures requiring assistance completed. Inserted saline lock: 22 gauge pf1 in left antecubital area, using aseptic technique. Blood collected. 00:30 Patient maintains SpO2 saturation greater than 95% on room air. pf1 00:31 Triage completed. jb4 00:32 Arm band placed on right wrist. jb4 00:32 Patient has correct armband on for positive identification. Placed in gown. Bed in low pf1 position. Call light in reach. Side rails up X2. Provided Education on: need for admit. 00:32 Client placed on continuous cardiac and pulse oximetry monitoring. NIBP monitoring pf1 applied. environmental monitoring specialist on. Pulse ox on. 00:33 Basic Metabolic Panel Sent. pf1 00:33 CBC with Diff Sent. pf1 00:33 LFT's Sent. pf1 00:33 Magnesium Sent. pf1 00:33 NT PRO-BNP Sent. pf1 00:33 PT-INR Sent. pf1 00:33 Troponin HS Sent. pf1 00:33 Lipase Sent. pf1 00:47 XRAY Chest (1 view) In Process Unspecified. EDMS 01:14 Mayr Peterson, MARIA is Primary Nurse. pf1 01:59 Urine W/Microscopic (UAM) Sent. pf1 01:59 Lactate w/ 2H reflex if indic. Sent. pf1 01:59 Blood Culture Adult (2) Sent. pf1 02:16 CT Aorta for Dissection In Process Unspecified. EDMS 03:30 Ethan Aguilar MD is Hospitalizing Provider. ms3 04:31 Patient admitted, IV remains in place. pf1 Administered Medications: 00:40 Drug: Promethazine IVP 12.5 mg IVP once Route: IVP; Site: right antecubital; pf1 01:40 Follow up: Response: No adverse reaction; Marked relief of symptoms; Vomiting decreased pf1 00:41 Drug: Aspirin PO Chewable Tablet 324 mg PO once; 81 mg tablets x 4 Route: PO; pf1 01:40 Follow up: Response: No adverse reaction; Marked relief of symptoms; Pain is decreased pf1 01:58 Drug: Pantoprazole IVP 40 mg IVP once Route: IVP; Site: left antecubital; pf1 02:50 Follow up: Response: No adverse reaction; Marked relief of symptoms pf1 03:30 Drug: Rocephin IV 1 grams IV at calculated rate once; Given slow IV push per pharmacy pf1 instructions Route: IV; Rate: calculated rate; Site: left antecubital; 03:35 Follow up: Response: No adverse reaction; Marked relief of symptoms; IV Status: pf1 Completed infusion; IV Intake: 10ml Medication: 04:32 VIS not applicable for this client. pf1 Intake: 03:35 IV: 10ml; Total: 10ml. pf1 Output: 00:50 Gastric: 280ml (Emesis); Total: 280ml. pf1 Outcome: 03:32 Decision to Hospitalize by Provider. ms3 04:31 Admitted to Med/surg accompanied by tech, family with patient, via wheelchair, room pf1 222, with chart, Report called to MARIA Thomas 04:31 Condition: stable 04:31 Instructed on the need for admit, Demonstrated understanding of instructions, 04:33 Patient left the ED. pf1 Signatures: Dispatcher [employer] EDMS Ree Branch, [employer]IVE [employer]-C [employer]-Csnw Vu Gray, RN RN jb4 Jose Ellsworth DO DO ms3 Sharri Schwartz jj6 Mary Peterson, RN RN pf1
[2023-04-11] MEDS ORDERED: ONDANSETRON 4 MG/2 ML VIAL IV PRN (03:54)
--- NOTE | 2023-04-11 03:58 | P.HP ---
Certification for Inpatient Patient admitted to: Inpatient With expected LOS: >2 Midnights Practitioner: I am a practitioner with admitting privileges, knowledge of patient current condition, hospital course, and medical plan of care. Services: Services provided to patient in accordance with Admission requirements found in Title 42 Section 412.3 of the Code of Federal Regulations Patient History Date of Service: 04/11/23 Reason for admission: Urinary tract infection, suspected pyelonephritis. History of Present Illness: 67-year-old female patient with medical history significant for hypertension, left hip degenerative joint disease with scheduled for surgery in April 2023 who came today with complaint of abdominal pain and fever and feeling uncomfortable for the past day. She has significant lower abdominal pain basically both right and lower quadrant of the belly with associated foul- smelling urine. No overt dysuria reported. No nausea, vomiting, diarrhea repo rted. No overt fever or night sweats reported. UA was done in the ER and there was significant concern for urinary tract infection so patient was reflexively started on antibiotic therapy and urine culture was taken. She was admitted for in hospital care. Allergies hydrocodone Adverse Reaction (Verified 04/11/23 04:52) Nausea/Vomiting Sulfa (Sulfonamide Antibiotics) Adverse Reaction (Verified 04/11/23 04:52) Nausea/Vomiting Home Medications: Meloxicam [Mobic*] 15 mg PO BEDTIME 06/26/21 Alendronate Sodium 70 mg PO SEECOM 04/11/23 Losartan Potassium [Cozaar*] 50 mg PO BEDTIME 04/11/23 Montelukast [Singulair] 10 mg PO BEDTIME 04/11/23 - Past Medical/Surgical History Diabetic: No -: HTN -: Arthritis - Family History Mother -: Heart disease Father -: Cancer - Social History Alcohol use: No CD- Drugs: No Caffeine use: Yes Review of Systems Eyes: Unremarkable ENT: Unremarkable Respiratory: Unremarkable Cardiovascular: Unremarkable Gastrointestinal: As per HPI Genitourinary: As per HPI Musculoskeletal: Unremarkable Integumentary: Unremarkable Neurological: Unremarkable Lymphatics: Unremarkable Physical Examination - Physical Exam General: Alert, Oriented x3 HEENT: Atraumatic Neck: Supple Respiratory: Normal air movement Cardiovascular: Regular rate/rhythm, Normal S1 S2 Gastrointestinal: Tenderness Neurological: Normal speech, Normal strength at 5/5 x4 extr - Studies Laboratory Data (last 24 hrs) 04/11/23 04/11/23 04/11/23 00:30 00:30 00:30 WBC 21.70 H Hgb 14.4 Hct 44.6 Plt Count 367 PT 11.8 INR 1.07 Sodium 137 Potassium 4.0 BUN 30 H Creatinine 1.06 H Glucose 117 H Magnesium 2.0 Total Bilirubin 0.3 AST 15 ALT 21 Alkaline Phosphatase 80 Lipase 68 Assessment and Plan - Plan Urinary tract infection/pyelonephritis: Patient. Clinical presentation is concerning. Urine culture has been obtained as well as blood culture. Empiric antibiotic therapy with Rocephin started. Will monitor cultures for adjustment to antibiotic therapy. Will continue as needed Tylenol and morphine for pain control. Hypertension: We will monitor vital signs per unit protocol and continue outpatient antihypertensive medication as needed. Hip pain: Tylenol and morphine to be continued for pain control. Patient is scheduled for surgical intervention in the month of April Prophylaxis: Lovenox for DVT prophylaxis. CODE STATUS: Full code. Disposition: We will treat her urinary tract infection/possibility of pyelonephritis and she will be discharged when she is deemed clinically stable and plan of care is finalized. - Advance Directives Does patient have a Living Will: No Does patient have a Durable POA for Healthcare: No
[2023-04-11] MEDS ORDERED: MORPHINE 2 MG/ML SYR IV PRN (04:00)
[2023-04-11] MEDS: NA CHLORIDE 0.9% 1,000 ML IV SCH ×2 (05:13→14:00)
[2023-04-11 05:37] VITALS: O2SAT 96; BMI 27.8
[2023-04-11] MEDS: ACETAMINOPHEN 325 MG TABLET PO PRN ×2 (09:13→21:13)
[2023-04-11] MEDS: ENOXAPARIN 40 MG/0.4 ML SQ SCH (09:14)
[2023-04-11] MEDS: CEFTRIAXONE 1,000 MG in NA CHLORIDE 0.9% 50 ML IVPB SCH (09:14)
--- NOTE | 2023-04-11 13:27 | P.PN ---
Subjective Date of Service: 04/11/23 Chief Complaint: Urinary tract infection, suspected pyelonephritis. Subjective: No new changes, Improving, Doing well Patient is alert and oriented x 3 Resting in the bed NAD Denies any pain or shortness of breath Vital stable <Lee,Rajeevbennie - Last Filed: 04/11/23 13:21> Date of Service: 04/12/23 <Stevo Flannery Nan - Last Filed: 04/12/23 19:54> Review of Systems 10-point ROS is otherwise unremarkable <LeeLucina - Last Filed: 04/11/23 13:21> Physical Examination - Vital Signs Temperature: 97.6 F Blood Pressure: 147/68 Pulse: 87 Respirations: 71 Pulse Ox (%): 92 - Physical Exam General: Alert, Oriented x3 HEENT: Atraumatic, Normocephalic Neck: Supple, 2+ carotid pulse no bruit Respiratory: Clear to auscultation bilaterally, Normal air movement Cardiovascular: No edema, Normal pulses Capillary refill: <2 Seconds Gastrointestinal: Normal bowel sounds, Soft and benign Musculoskeletal: No clubbing, No swelling Integumentary: No rashes, No breakdown Neurological: Normal speech, Normal tone, Normal affect - Studies Laboratory Data (last 24 hrs) 04/11/23 04/11/23 04/11/23 00:30 00:30 00:30 WBC 21.70 H Hgb 14.4 Hct 44.6 Plt Count 367 PT 11.8 INR 1.07 Sodium 137 Potassium 4.0 BUN 30 H Creatinine 1.06 H Glucose 117 H Magnesium 2.0 Total Bilirubin 0.3 AST 15 ALT 21 Alkaline Phosphatase 80 Lipase 68 <LeeRajeev maguirebennie - Last Filed: 04/11/23 13:21> Assessment And Plan - Current Problems (Diagnosis) (1) UTI (urinary tract infection) Status: Acute (2) HTN (hypertension) Status: Acute (3) Hip joint pain Status: Acute - Plan Urinary tract infection/pyelonephritis: Leucocytosis: WBC 21.7- Patient is afebrile, vitals stable Urine culture has been obtained as well as blood culture. Empiric antibiotic therapy with Rocephin started. Will monitor cultures for adjustment to antibiotic therapy. Will continue as needed Tylenol and morphine for pain control. Hypertension: We will monitor vital signs per unit protocol and continue outpatient antihypertensive medication as needed. Hip pain: Tylenol and morphine to be continued for pain control. Patient is scheduled for surgical intervention in the month of April Prophylaxis: Lovenox for DVT prophylaxis. CODE STATUS: Full code. Disposition: We will treat her urinary tract infection/possibility of pyelonephritis and she will be discharged when she is deemed clinically stable and plan of care is finalized. Discharge Plan: Psychiatry Plan to discharge in: 48 Hours - Code Status/Comfort Care Code Status Assessed: Yes (full code) Code Status: Full Code Physician Review: Patient Assessed, Agree with Above Assessment and Plan Critical Care: No Time Spent Managing PTS Care (In Minutes): 35 (Minutes) <Lucina Lee - Last Filed: 04/11/23 13:21> - Plan Pt seen and examined. I agree with the note by the COAL YARD SUPERVISOR. Will continue rocephin for UTI <Stevo Flannery - Last Filed: 04/12/23 19:54>
--- NOTE | 2023-04-11 20:44 | RAD REPORT ---
EXAM DESCRIPTION: CT - Angio Aorta For Dissection - 04/11/2023 6:44 am CLINICAL HISTORY: 67 years, Female, ABD PAIN COMPARISON: None TECHNIQUE: Multiple transaxial tomograms of the thoracic and abdominal aorta were performed utilizin g 2 mm slice thickness at 2 mm interval reconstruction, from the lung apices to the ischial tuberosit ies, before and after the administration of large bolus of IV contrast for complete opacification of the thoracic, abdominal aorta and iliac arteries. 2-D and 3-D multiplanar reformats, volume rendering technique and maximum intensity projection images were generated and reviewed. An individualized dose optimization technique, Automated Exposure Control, was utilized for the perfo rmed procedure. FINDINGS: Thoracic aorta/great vessels: The thoracic aorta demonstrate to be within normal limits. Very minimal peripheral atheromatous plaqu e posterior arch/descending thoracic aorta. Okay No evidence for significant aneurysm and/or dilatati on. There is normal branching pattern of the great vessels with no evidence for significant proximal stenosis and/or occlusion Aorta/iliac arteries: There is very minimal atheromatous plaque abdominal aorta without aneurysmal dilatation or evidence o f dissection. Bilateral common iliac arteries are patent without significant atherosclerotic disease or stenosis. N o dissection or aneurysm appreciated. The celiac trunk, superior mesenteric and inferior mesenteric artery demonstrate to be patent with no evidence for significant stenosis and/or occlusion. There are single bilateral renal arteries with n o significant abnormalities. Chest: Lower neck/chest wall: Visualized thyroid gland and soft tissues are normal. No adenopathy. Lungs and airways: The lung parenchyma demonstrate minimal tree-in-bud nodularity is involving the an terior segment of the mid/lower bilateral lower lobes/inferiorly into segment and the posterior segme nt right lower lobe on axial image 41-64. No significant pulmonary nodules and/or masses identified. No focal areas of consolidation. Airways: The trachea mainstem bronchus demonstrate to be unremarkable. Pleural: There are no pleural effusion. No evidence for pneumothorax. Hemidiaphragms are normally pos itioned. Mediastinum and lymph nodes: No significant mediastinal and/or hilar lymphadenopathy. The axillary re gions demonstrate to be clear. Heart: Normal heart size. No pericardial effusion. No coronary arteries calcifications. Thoracic aorta: The thoracic aorta demonstrate to be within normal limits. Pulmonary arteries: The central pulmonary arteries demonstrate to be within normal limits. No evidenc e for significant central filling defect to suggest pulmonary embolus. Osseous structures and chest wall: The thoracic spine demonstrate to be within normal limits. No evid ence for compression deformities and/or significant skeletal lesions. Abdomen and pelvis: Liver: The liver demonstrated presence of decreased attenuation corresponding to mild fatty infiltrat ion. There are hepatic cysts, the largest one inferior subcapsular right hepatic lobe measuring 2.1 x 2.1 cm on image 100. Gallbladder: The gallbladder demonstrate to be normal. Adrenal glands: The adrenal glands demonstrate to be normal. Pancreas: The pancreas demonstrate to be normal. Spleen: The spleen demonstrate to be within normal limits. Kidneys: The kidneys demonstrate normal uptake of contrast media. There is no evidence for nephroli thiasis and/or hydronephrosis . There are no significant cystic lesions. GI: There is a small hiatal hernia. Grossly the unopacified stomach, small bowel and large bowel demo nstrate to be within normal limits. No evidence for bowel dilatation and/or free air. The appendix is normal. There is minimally fluid-filled large bowel perhaps suggesting the possibility of a imminent diarrhea. : The urinary bladder demonstrate to be unremarkable. Genitalia: The uterus demonstrate to be within normal limits. There are normal adnexal structures. Retroperitoneum: There is no retroperitoneal lymphadenopathy. There is no evidence for ascites and/or abnormal fluid collections. Bones: The bones demonstrate to be demineralized with minimal degenerative changes T12/L1. Soft tissues: The rest of the soft tissue and bony structures are within normal limits. IMPRESSION: Minimal tree-in-bud nodularity involving the anterior segment of the mid/lower bilateral lower lobes/inferiorly into segment and the posterior segment right lower lobe, suggesting the possi bility of an infectious or inflammatory process. No evidence for significant central pulmonary embolus and/or thoracic aortic dissection. No evidence for significant aneurysm and/or dissection of the aorta. Mild fatty infiltration of the liver with hepatic cysts. Minimal fluid-filled large bowel perhaps just in the possibility of a imminent diarrhea. Electronically signed by: Mikhail Clemente MD 04/11/2023 03:18 AM HOSPITAL SECRETARY Due to temporary technical issues with the PACS/Fluency reporting system, reports are being signed by the in house radiologists without review as a courtesy to insure prompt reporting. The interpreting radiologist is fully responsible for the content of the report.
--- NOTE | 2023-04-11 20:55 | RAD REPORT ---
EXAM DESCRIPTION: RAD - Chest Single View - 04/11/2023 12:45 am CLINICAL HISTORY: The patient is 67 years old and is Female; CHEST PAIN Bed Name: 13 TECHNIQUE: Frontal view of the chest. COMPARISON: No relevant prior studies available. FINDINGS: LUNGS: Hazy symmetric appearance of the bilateral lung bases are favored to be artifactu al secondary to overlying breast parenchyma, but could not exclude mild basilar edema or pneumonitis. No discrete consolidation. PLEURAL SPACE: No appreciable pleural effusion or pneumothorax. MEDIASTINUM: Normal cardiomediastinal contours, allowing for technique and positioning. BONES/JOINTS: No acute osseous abnormality. Small osseous fragment noted superior to the right gali oid, suspicious for ossified body IMPRESSION: Hazy symmetric appearance of the bilateral lung bases are favored to be artifactual seco ndary to overlying breast parenchyma, but could not exclude mild basilar edema or pneumonitis. No dis crete consolidation. Electronically signed by: Maxi Ibrahim MD 04/11/2023 12:55 AM FRONT END TECHNICIAN Due to temporary technical issues with the PACS/Fluency reporting system, reports are being signed by the in house radiologists without review as a courtesy to insure prompt reporting. The interpreting radiologist is fully responsible for the content of the report.
[2023-04-12 07:40] LABS: Absolute Lymphocytes (CBC) 2.8 K/uL (0.7-4.9); Hematocrit 39.6 % (36.0-45.0); Lymphocytes % 37.3 % (15.3-44.8); MCV 83.3 fL (80-100); MPV 8.2 fL (7.6-11.3); Platelets 299 thou/uL (152-406); RBC Red Blood Cell Count 4.75 M/uL (3.86-4.86)
[2023-04-12 08:04] LABS: Albumin 3.3 g/dL (3.4-5.0); Bilirubin Total 0.4 mg/dL (0.2-1.0); Potassium 4.3 mEq/L (3.5-5.1); Protein, Total 6.4 g/dL (6.4-8.2)
--- NOTE | 2023-04-12 09:10 | P.PN ---
Subjective Date of Service: 04/12/23 Chief Complaint: Urinary tract infection, suspected pyelonephritis. - Physical Exam General: Alert, Oriented x3 HEENT: Atraumatic, Normocephalic Neck: Supple, 2+ carotid pulse no bruit Respiratory: Clear to auscultation bilaterally, Normal air movement Cardiovascular: No edema, Normal pulses Capillary refill: <2 Seconds Gastrointestinal: Normal bowel sounds, Soft and benign Musculoskeletal: No clubbing, No swelling Integumentary: No rashes, No breakdown Neurological: Normal speech, Normal tone, Normal affect Physical Examination - Vital Signs Temperature: 97.2 F Blood Pressure: 150/73 Pulse: 66 Respirations: 17 Pulse Ox (%): 97 Assessment And Plan - Plan Assessment plan Bilateral lobe pneumonia Antibiotics, O2 2 L keep sats greater than 90% CT IMPRESSION: Minimal tree-in-bud nodularity involving the anterior segment of the mid/lower bilateral lower lobes/inferiorly into segment and the posterior segment right lower lobe, suggesting the possibility of an infectious or inflammatory process. No evidence for significant central pulmonary embolus and/or thoracic aortic dissection. No evidence for significant aneurysm and/or dissection of the aorta. Mild fatty infiltration of the liver with hepatic cysts. Minimal fluid-filled large bowel perhaps just in the possibility of a imminent diarrhea Urinary tract infection/pyelonephritis: Leucocytosis: WBC 21.7- Patient is afebrile, vitals stable Urine culture has been obtained as well as blood culture. Empiric antibiotic therapy with Rocephin started. Will monitor cultures for adjustment to antibiotic therapy. Will continue as needed Tylenol and morphine for pain control.. Blood cultures no growth Urine cultures positive for UTI Hypertension uncontrolled We will monitor vital signs per unit protocol and continue outpatient antihypertensive medication as needed. Hip pain: Tylenol and morphine to be continued for pain control. Patient is scheduled for surgical intervention in the month of April Prophylaxis: Lovenox for DVT prophylaxis. CODE STATUS: Full code. Discharge Plan: Home Plan to discharge in: 48 Hours . Discharge Plan: Home - Code Status/Comfort Care Code Status: Full Code Critical Care: No Time Spent Managing PTS Care (In Minutes): 35
[2023-04-12] MEDS ORDERED: LABETALOL 20 MG/4ML SYRINGE IV PRN (09:11)
[2023-04-12] MEDS: CEFTRIAXONE 1,000 MG in NA CHLORIDE 0.9% 50 ML IVPB SCH (09:40)
[2023-04-12] MEDS: ENOXAPARIN 40 MG/0.4 ML SQ SCH (09:41)
--- NOTE | 2023-04-12 10:59 | P.DS ---
Admission Date: 04/11/23 Discharge Date: 04/12/23 Reason for Admission: Urinary tract infection, suspected pyelonephritis. Brief History of Present Illness: 67-year-old female patient with medical history significant for hypertension, left hip degenerative joint disease with scheduled for surgery in April 2023 who came today with complaint of abdominal pain and fever and feeling uncomfortable for the past day. She has significant lower abdominal pain basically both right and lower quadrant of the belly with associated foul- smelling urine. No overt dysuria reported. No nausea, vomiting, diarrhea reported. No overt fever or night sweats reported. UA was done in the ER and there was significant concern for urinary tract infection so patient was reflexively started on antibiotic therapy and urine culture was taken. She was admitted for in hospital care. 67-year-old female patient with medical history significant for hypertension, left hip degenerative joint disease with scheduled for surgery in April 2023 who came today with complaint of abdominal pain and fever and feeling uncomfortable for the past day. She has significant lower abdominal pain basically both right and lower quadrant of the belly with associated foul- smelling urine. No overt dysuria reported. No nausea, vomiting, diarrhea reported. No overt fever or night sweats reported. UA was done in the ER and there was significant concern for urinary tract infection so patient was reflexively started on antibiotic therapy and urine culture was taken. She was admitted for in hospital care. Hospital Course: PROBLEM: UTI/Pyelonephritis GOAL: Clear understanding of disease process INSTRUCTIONS: Diet: Low sodium Activity: Weight bearing as tolerated Follow up with an Internal Medicine Physician of your choice: FATMATA YOUNG MD [address] [facility], [address] [place], [place] [address] GREY HUFFMAN MD [address] [place], [place] [address] NABILA SARABIA MD [address] [facility], [facility] [address] [place], [place] [id number] CAR VIEIRA MD [address] [place], [place] [id number] 67 year-old female patient presented with cough, congestion. Was noted to have pneumonia, urinary tract infection . Was treated with 3 Condition improved with IV antibiotics. Stable for discharge to acute inpatient rehab with follow-up appointment with primary care physician. PROBLEM: Pneumonia, Urinary tract infection Continue home medicines as previously prescribed GOAL: Clear understanding of disease process INSTRUCTIONS: Physician Discharge Instructions: -DC IV and DC home -Follow-up with PCP in 1 to 2 weeks -Please call nursing station at [phone] if any nursing or medication questions -Return to the emergency room if symptoms worsen Diet: ADA, low sodium Activity: Fall precautions <Janet Healy - Last Filed: 04/12/23 13:32> Admission Date: 04/11/23 Discharge Date: 04/12/23 Hospital Course: Pt seen and examined. I agree with the note by the FLOW COORDINATOR. Ok to discharge pt. Take abx as prescribed <Stevo Flannery - Last Filed: 04/12/23 19:48> Disposition: ROUTINE DISCHARGE Discharge Condition: FAIR Vital Signs/Physical Exam: Temp Pulse Resp BP Pulse Ox 97.2 F 66 17 150/73 H 97 04/12/23 09:10 04/12/23 09:10 04/12/23 09:10 04/12/23 09:10 04/12/23 09:10 Laboratory Data at Discharge: WBC 7.40 thou/uL (4.3-10.9) 04/12/23 07:00 Hgb 12.9 g/dL (12.0-15.0) 04/12/23 07:00 Hct 39.6 % (36.0-45.0) 04/12/23 07:00 Plt Count 299 thou/uL (152-406) 04/12/23 07:00 PT 11.8 SECONDS (9.5-12.5) 04/11/23 00:30 INR 1.07 04/11/23 00:30 Sodium 139 mEq/L (136-145) 04/12/23 07:00 Potassium 4.3 mEq/L (3.5-5.1) 04/12/23 07:00 BUN 15 mg/dL (7-18) 04/12/23 07:00 Creatinine 0.55 mg/dL (0.55-1.02) 04/12/23 07:00 Glucose 93 mg/dL (74-106) 04/12/23 07:00 Magnesium 2.0 mg/dL (1.6-2.4) 04/11/23 00:30 Total Bilirubin 0.4 mg/dL (0.2-1.0) 04/12/23 07:00 AST 8 U/L (15-37) L 04/12/23 07:00 ALT 14 U/L (13-56) 04/12/23 07:00 Alkaline Phosphatase 64 U/L (45-117) 04/12/23 07:00 Lipase 68 U/L (13-75) 04/11/23 00:30 <NirajJanet - Last Filed: 04/12/23 13:32> Vital Signs/Physical Exam: Temp Pulse Resp BP Pulse Ox 97.6 F 70 16 138/65 95 04/12/23 12:00 04/12/23 12:00 04/12/23 12:00 04/12/23 12:00 04/12/23 12:00 Laboratory Data at Discharge: WBC 7.40 thou/uL (4.3-10.9) 04/12/23 07:00 Hgb 12.9 g/dL (12.0-15.0) 04/12/23 07:00 Hct 39.6 % (36.0-45.0) 04/12/23 07:00 Plt Count 299 thou/uL (152-406) 04/12/23 07:00 PT 11.8 SECONDS (9.5-12.5) 04/11/23 00:30 INR 1.07 04/11/23 00:30 Sodium 139 mEq/L (136-145) 04/12/23 07:00 Potassium 4.3 mEq/L (3.5-5.1) 04/12/23 07:00 BUN 15 mg/dL (7-18) 04/12/23 07:00 Creatinine 0.55 mg/dL (0.55-1.02) 04/12/23 07:00 Glucose 93 mg/dL (74-106) 04/12/23 07:00 Magnesium 2.0 mg/dL (1.6-2.4) 04/11/23 00:30 Total Bilirubin 0.4 mg/dL (0.2-1.0) 04/12/23 07:00 AST 8 U/L (15-37) L 04/12/23 07:00 ALT 14 U/L (13-56) 04/12/23 07:00 Alkaline Phosphatase 64 U/L (45-117) 04/12/23 07:00 Lipase 68 U/L (13-75) 04/11/23 00:30 <Stevo Flannery - Last Filed: 04/12/23 19:48> Diet: Low sodium Activity: Weight bearing as tolerated Time spent managing pt's care (in minutes): 55 <Janet Healy - Last Filed: 04/12/23 13:32> <Stevo Flannery - Last Filed: 04/12/23 19:48> Home Medications: Meloxicam [Mobic*] 15 mg PO BEDTIME 06/26/21 Alendronate Sodium 70 mg PO SEECOM 04/11/23 Losartan Potassium [Cozaar*] 50 mg PO BEDTIME 04/11/23 Montelukast [Singulair*] 10 mg PO BEDTIME 04/11/23 Albuterol Inhaler [Ventolin Inhaler*] 2 puff IH Q6H PRN 14 Days #1 inh 04/12/23 Lactobacillus Acidophilus [Acidophilus Lactobacilli] 1 each PO BID 5 Days #10 tab 04/12/23 New Medications: Lactobacillus Acidophilus [Acidophilus Lactobacilli] 1 each PO BID 5 Days #10 tab Albuterol Inhaler [Ventolin Inhaler*] 2 puff IH Q6H PRN 14 Days #1 inh PRN Reason: Shortness Of Breath
[2023-04-12 12:36] VITALS: BP 138/65; TEMP 97.6
--- NOTE | 2023-04-12 16:55 | EKG ---
Test Date: 2023-04-11 Test Time: 00:25:35 Glass Finisher: GILLIAN MEASUREMENT RESULTS: Intervals: Rate: 100 NC: 146 QRSD: 84 QT: 350 QTc: 451 [place]: P: 84 NC: 146 QRS: -58 T: 69 INTERPRETIVE STATEMENTS: Normal sinus rhythm Right atrial enlargement Left axis deviation Pulmonary disease pattern Abnormal ECG Compared to ECG 06/25/2021 05:07:13 Atrial abnormality now present Left-axis deviation now present Electronically Signed On 04-12-23 16:51:58 YEAST MAKER by Migue Pichardo
[2023-04-12] MEDS ORDERED: MELOXICAM 7.5 MG TAB PO SCH (21:00)
[2023-04-12] MEDS ORDERED: LOSARTAN POTASSIUM 50 MG TABLET PO SCH (21:00)
[2023-04-12] MEDS ORDERED: MONTELUKAST 10 MG TAB PO SCH (21:00)
== END 2023-04-12 13:15 | disposition home or self-care (01) ==
LOC: ER 00:21 → INTOOBSV 03:54 → 2ND 03:54
PROVIDERS: ADMIT Internal Medicine Nephrology; ATTEND Hospitalist
DX: N39.0 Urinary tract infection, site not specified (principal); J18.9 Pneumonia, unspecified organism; I10 Essential (primary) hypertension; M25.552 Pain in left hip; M16.12 Unilateral primary osteoarthritis, left hip; Z88.5 Allergy status to narcotic agent; Z88.2 Allergy status to sulfonamides
CPT/HCPCS: 93005; 87040 ×2; 87088; 85025 ×2; 81001; 87086; 80048; 36415 ×2; 83735; 85610; 80076; 83605; 87077; 87186; 84484; 83690; 80053; 83880; 71275; 74175; 71045; 99285; Q9967; J2550; C9113; J1650 ×2; J7030 ×2; J0696 ×3; G0378 ×3

== ENCOUNTER → 2023-05-05 | Emergency (ER) | payer OTHER ==
[~2023-05-05] MED LIST: DIPHENHYDRAMINE 50 MG/ML VIAL ONE; METOCLOPRAMIDE 10 MG/2mL INJ ONE; NA CHLORIDE 0.9% 1,000 ML ONE; NA CHLORIDE 0.9% 50 ML ONE; ONDANSETRON 4 MG/2 ML VIAL ONE; PROMETHAZINE INJ 25 MG/ML AMP ONE
[2023-05-05 11:16] LABS: Absolute Lymphocytes (CBC) 1.9 K/uL (0.7-4.9); Hematocrit 31.5 % (36.0-45.0); Lymphocytes % 13.8 % (15.3-44.8); MCV 81.3 fL (80-100); MPV 6.9 fL (7.6-11.3); Platelets 624 thou/uL (152-406); RBC Red Blood Cell Count 3.88 M/uL (3.86-4.86)
[2023-05-05 11:34] LABS: Albumin 3.1 g/dL (3.4-5.0); Bilirubin Total 0.8 mg/dL (0.2-1.0); Potassium 3.9 mEq/L (3.5-5.1); Protein, Total 7.1 g/dL (6.4-8.2)
--- NOTE | 2023-05-05 14:06 | ER ---
Nurse's Notes [facility] Name: Mariel Aburto Age: 67 yrs Sex: Female : 1955 Arrival Date: 05/05/2023 Time: 10:29 Bed 19 Private MD: Tierney Dorsey Diagnosis: Nausea with vomiting, unspecified Presentation: 05/05 10:34 Chief complaint: Patient states: Hip surgery last Wednesday. Pain meds have made me sick, ld1 I have stopped taking them but I am extremely nauseous and unable to eat or drink. C/O nausea. Coronavirus screen: At this time, the client does not indicate any symptoms associated with coronavirus-19. Ebola Screen: No symptoms or risks identified at this time. Initial Sepsis Screen: Does the patient meet any 2 criteria? No. Patient's initial sepsis screen is negative. Does the patient have a suspected source of infection? No. Patient's initial sepsis screen is negative. Risk Assessment: Do you want to hurt yourself or someone else? Patient reports no desire to harm self or others. Onset of symptoms was May 05, 2023. 10:34 Method Of Arrival: Wheelchair ld1 10:34 Acuity: CHERRI 3 ld1 Triage Assessment: 10:34 General: Appears in no apparent distress. comfortable, Behavior is calm, cooperative, ld1 appropriate for age. Pain: Denies pain. EENT: No signs and/or symptoms were reported regarding the EENT system. Neuro: Level of Consciousness is awake, alert, obeys commands, Oriented to person, place, time, situation. Cardiovascular: Capillary refill < 3 seconds. Respiratory: Airway is patent Respiratory effort is even, unlabored. GI: Abdomen is round non-distended, Reports nausea. : No signs and/or symptoms were reported regarding the genitourinary system. Derm: No signs and/or symptoms reported regarding the dermatologic system. Musculoskeletal: No signs and/or symptoms reported regarding the musculoskeletal system. Historical: - Allergies: 10:32 Hydrocodone-Acetaminophen; ld1 10:32 Sulfa (Sulfonamide Antibiotics); ld1 - PMHx: 10:32 Arthritis; Hypertension; ld1 - PSHx: 10:32 tubal ligation (en); ld1 - Immunization history:: Adult Immunizations up to date. - Social history:: Smoking status: Patient denies any tobacco usage or history of. Patient/guardian denies using alcohol. - Family history:: not pertinent. Screenin:30 [facility] ED Fall Risk Assessment (Adult) History of falling in the last 3 months, db including since admission No falls in past 3 months (0 pts) Confusion or Disorientation No (0 pts) Intoxicated or Sedated No (0 pts) Impaired Gait No (0 pts) Mobility Assist Device Used No (0 pt) Altered Elimination No (0 pt) Score/Fall Risk Level 0 - 2 = Low Risk Oriented to surroundings, Maintained a safe environment. Abuse screen: Denies threats or abuse. Denies injuries from another. Nutritional screening: No deficits noted. Tuberculosis screening: No symptoms or risk factors identified. Assessment: 11:15 Reassessment: Patient appears in no apparent distress at this time. Patient and/or db family updated on plan of care and expected duration. Pain level reassessed. Patient is alert, oriented x 3, equal unlabored respirations, skin warm/dry/pink. NAUSEA AND VOMITING. HIP PROCEDURE AND PAIN MEDICATION MAKES PATIENT FEEL NAUSEATED. General: Appears in no apparent distress. comfortable, Behavior is calm, cooperative. 11:20 Reassessment:. ll1 12:00 Reassessment: Patient appears in no apparent distress at this time. Patient and/or db family updated on plan of care and expected duration. Pain level reassessed. Patient is alert, oriented x 3, equal unlabored respirations, skin warm/dry/pink. Patient states feeling better. 13:00 Reassessment: Patient appears in no apparent distress at this time. Patient and/or db family updated on plan of care and expected duration. Pain level reassessed. Patient is alert, oriented x 3, equal unlabored respirations, skin warm/dry/pink. Neuro: Level of Consciousness is awake, alert, obeys commands, Oriented to person, place, time, situation. 13:40 Reassessment: PROVIDED PATIENT WITH CRACKERS AND SODA. db Vital Signs: 10:34 BP 153 / 61; Pulse 109; Resp 18; Temp 97.8(TE); Pulse Ox 97% on R/A; Weight 78.02 kg; ld1 Height 5 ft. 5 in. ; Pain 0/10; 10:50 BP 142 / 60; Pulse 99; Resp 18; Pulse Ox 97% on R/A; db 11:05 BP 147 / 58; Pulse 98; Resp 16; Pulse Ox 97% on R/A; db 12:00 BP 158 / 70; Pulse 96; Resp 16; Pulse Ox 96% ; db 13:00 BP 156 / 68; Pulse 98; Resp 18; Pulse Ox 99% on R/A; db 14:27 BP 134 / 99; Pulse 98; Resp 17; Pulse Ox 97% ; ll1 10:34 Body Mass Index 28.62 (78.02 kg, 165.1 cm) ld1 10:34 Pain Scale: Adult ld1 ED Course: 10:31 Patient arrived in ED. mr 10:31 Tierney Dorsey DO is Private Physician. mr 10:33 Soham Rubio MD is Attending Physician. rt 10:34 Arm band placed on right wrist. ld1 10:35 Triage completed. ld1 10:57 Zahra Hernandez, RN is Primary Nurse. db 11:05 Inserted saline lock: 22 gauge in right antecubital area, using aseptic technique. db Blood collected. 11:30 Patient has correct armband on for positive identification. Bed in low position. Call db light in reach. Side rails up X 1. Pulse ox on. NIBP on. Warm blanket given. 14:27 No provider procedures requiring assistance completed. IV discontinued, intact, ll1 bleeding controlled, No redness/swelling at site. Pressure dressing applied. 14:28 Provided Education on: n/a. ll1 Administered Medications: 11:14 Drug: NS 0.9% IV 1000 ml IV at 1 bolus Per protocol; 1000 mL bolus Route: IV; Rate: 1 db bolus; Site: right antecubital; 14:28 Follow up: Response: No adverse reaction; IV Status: Completed infusion; IV Intake: ll1 1000ml 11:14 Drug: Promethazine IVP 12.5 mg IVP once Route: IVP; Site: right antecubital; db 14:28 Follow up: Response: No adverse reaction; Nausea is decreased ll1 12:09 Drug: Ondansetron IVP 4 mg IVP once; over 2 minutes Route: IVP; Site: right antecubital;db 14:28 Follow up: Response: No adverse reaction ll1 13:08 Drug: metoCLOPramide IVP 10 mg IVP once; over 1 to 2 minutes Route: IVP; Site: right db antecubital; 14:28 Follow up: Response: No adverse reaction ll1 13:08 Drug: diphenhydrAMINE IVP 25 mg IVP once Route: IVP; Site: right antecubital; db 14:29 Follow up: Response: No adverse reaction ll1 Medication: 14:28 VIS not applicable for this client. ll1 Intake: 14:28 IV: 1000ml; Total: 1000ml. ll1 Outcome: 14:05 Discharge ordered by . rt 14:27 Discharged to home via wheelchair, ll1 14:27 Condition: stable 14:27 Discharge instructions given to patient, family, Instructed on discharge instructions, follow up and referral plans. medication usage, Demonstrated understanding of instructions, follow-up care, medications, Prescriptions given X 2, :29 Patient left the ED. ll1 Signatures: Keisha Velazquez, Reg Reg mr Zane Caal, RN RN ll1 Mary Ellsworth RN RN ld1 Zahra Hernandez RN RN db Soham Rubio MD MD rt
--- NOTE | 2023-05-05 14:06 | EDPHYS ---
Physician Documentation [facility] Name: Mariel Aburto Age: 67 yrs Sex: Female : 1955 Arrival Date: 05/05/2023 Time: 10:29 Bed 19 Private MD: Tierney Dosrey ED Physician Soham Rubio HPI: 05/05 10:57 This 67 yrs old Female presents to ER via Wheelchair with complaints of Dehydrated. rt 10:57 Patient presents to the ED with nausea and vomiting. The patient had a hip replacement rt surgery 8 days ago, reports that she has been nauseated since then and has had difficulty tolerating liquids. She initially attributed this to the pain medications but she stopped taking the pain meds and still remains with nausea. She denies other acute complaints at this time including abdominal pain. Symptoms are moderate in severity, no other aggravating or elevating factors.. Historical: - Allergies: 10:32 Hydrocodone-Acetaminophen; ld1 10:32 Sulfa (Sulfonamide Antibiotics); ld1 - PMHx: 10:32 Arthritis; Hypertension; ld1 - PSHx: 10:32 tubal ligation (en); ld1 - Immunization history:: Adult Immunizations up to date. - Social history:: Smoking status: Patient denies any tobacco usage or history of. Patient/guardian denies using alcohol. - Family history:: not pertinent. ROS: 10:57 Constitutional: Negative for fever, chills, and weight loss, Cardiovascular: Negative rt for chest pain, palpitations, and edema, Respiratory: Negative for shortness of breath, cough, wheezing, and pleuritic chest pain, MS/Extremity: Negative for injury and deformity, Skin: Negative for injury, rash, and discoloration, Neuro: Negative for headache, weakness, numbness, tingling, and seizure, Psych: Negative for depression, anxiety, suicide ideation, homicidal ideation, and hallucinations, 10:57 Abdomen/GI: Positive for nausea and vomiting, Negative for abdominal pain, Exam: 10:57 Constitutional: This is a well developed, well nourished patient who is awake, alert, rt and in no acute distress. Head/Face: Normocephalic, atraumatic. Chest/axilla: Normal chest wall appearance and motion. Nontender with no deformity. No lesions are appreciated. Cardiovascular: Regular rate and rhythm with a normal S1 and S2. No gallops, murmurs, or rubs. Normal PMI, no JVD. No pulse deficits. Respiratory: Lungs have equal breath sounds bilaterally, clear to auscultation and percussion. No rales, rhonchi or wheezes noted. No increased work of breathing, no retractions or nasal flaring. Abdomen/GI: Soft, non-tender, with normal bowel sounds. No distension or tympany. No guarding or rebound. No evidence of tenderness throughout. Skin: Warm, dry with normal turgor. Normal color with no rashes, no lesions, and no evidence of cellulitis. MS/ Extremity: Pulses equal, no cyanosis. Neurovascular intact. Full, normal range of motion. Neuro: Awake and alert, GCS 15, oriented to person, place, time, and situation. Cranial nerves II-XII grossly intact. Motor strength 5/5 in all extremities. Sensory grossly intact. Cerebellar exam normal. Normal gait. Psych: Awake, alert, with orientation to person, place and time. Behavior, mood, and affect are within normal limits. Vital Signs: 10:34 BP 153 / 61; Pulse 109; Resp 18; Temp 97.8(TE); Pulse Ox 97% on R/A; Weight 78.02 kg; ld1 Height 5 ft. 5 in. ; Pain 0/10; 10:50 BP 142 / 60; Pulse 99; Resp 18; Pulse Ox 97% on R/A; db 11:05 BP 147 / 58; Pulse 98; Resp 16; Pulse Ox 97% on R/A; db 12:00 BP 158 / 70; Pulse 96; Resp 16; Pulse Ox 96% ; db 13:00 BP 156 / 68; Pulse 98; Resp 18; Pulse Ox 99% on R/A; db 14:27 BP 134 / 99; Pulse 98; Resp 17; Pulse Ox 97% ; ll1 10:34 Body Mass Index 28.62 (78.02 kg, 165.1 cm) ld1 10:34 Pain Scale: Adult ld1 MDM: 10:37 Patient medically screened. rt 14:07 Differential Diagnosis Dehydration, to disturbance, nausea, vomiting. Data reviewed: rt vital signs, nurses notes, lab test result(s). Test considered but Not performed: CT: Benign abdominal examination, no tenderness, stable labs, low suspicion for acute surgical pathology, CT scan not indicated. Care significantly affected by the following chronic conditions: Hypertension. Counseling: I had a detailed discussion with the patient and/or guardian regarding the historical points, exam findings, and any diagnostic results supporting the discharge/admit diagnosis, lab results, the need for outpatient follow up, to return to the emergency department if symptoms worsen or persist or if there are any questions or concerns that arise at home. Response to treatment: the patient's symptoms have markedly improved after treatment. 05/05 10:43 Order name: CBC with Diff; Complete Time: 11:39 rt 05/05 10:43 Order name: CMP; Complete Time: :39 rt 05/05 10:43 Order name: Lipase; Complete Time: :39 rt Administered Medications: 11:14 Drug: NS 0.9% IV 1000 ml IV at 1 bolus Per protocol; 1000 mL bolus Route: IV; Rate: 1 db bolus; Site: right antecubital; 14:28 Follow up: Response: No adverse reaction; IV Status: Completed infusion; IV Intake: ll1 1000ml 11:14 Drug: Promethazine IVP 12.5 mg IVP once Route: IVP; Site: right antecubital; db 14:28 Follow up: Response: No adverse reaction; Nausea is decreased ll1 12:09 Drug: Ondansetron IVP 4 mg IVP once; over 2 minutes Route: IVP; Site: right antecubital;db 14:28 Follow up: Response: No adverse reaction ll1 13:08 Drug: metoCLOPramide IVP 10 mg IVP once; over 1 to 2 minutes Route: IVP; Site: right db antecubital; 14:28 Follow up: Response: No adverse reaction ll1 13:08 Drug: diphenhydrAMINE IVP 25 mg IVP once Route: IVP; Site: right antecubital; db 14:29 Follow up: Response: No adverse reaction ll1 Disposition Summary: 05/05/23 14:05 Discharge Ordered Notes: Location: Home rt Problem: new rt Symptoms: have improved rt Condition: Stable rt Diagnosis - Nausea with vomiting, unspecified rt Followup: rt - With: Private Physician - When: 2 - 3 days - Reason: Discharge Instructions: - Discharge Summary Sheet rt - Nausea and Vomiting, Adult rt Forms: - Medication Reconciliation Form rt - Thank You Letter rt - Antibiotic Education rt - Prescription Opioid Use rt - Patient Portal Instructions rt - Leadership Thank You Letter rt Prescriptions: - Reglan 10 mg Oral tablet - take 1 tablet ORAL route every 6 hours as needed for nausea; 30 tablet; rt Refills: 0, Product Selection Permitted - promethazine 25 mg Oral tablet - take 1 tablet ORAL route every 6 hours As needed; 30 tablet; Refills: 0, rt Product Selection Permitted Signatures: Dispatcher [employer] EDMary Quezada RN RN ld1 Zahra Hernandez RN RN db Soham Rubio MD MD rt Zane Caal RN ll1
[2023-05-05 15:22] VITALS: TEMP 97.8
[2023-05-05 15:40] VITALS: BP 134/99; O2SAT 97
== END ==
LOC: SUPCPDRO 10:29 → ER 10:29
DX: R11.2 Nausea with vomiting, unspecified (principal); Z98.890 Other specified postprocedural states; I10 Essential (primary) hypertension; Z88.2 Allergy status to sulfonamides; Z88.5 Allergy status to narcotic agent
CPT/HCPCS: 36415; 80053; 83690; 85025; J1200; J2405; J2550; J2765; J7030

== ENCOUNTER 2023-05-06 22:13 | Inpatient (IN) | payer OTHER ==
[2023-05-06 23:10] LABS: Hematocrit 30.5 % (36.0-45.0); Lymphocytes % 12.1 % (15.3-44.8); MCV 81.1 fL (80-100); MPV 6.7 fL (7.6-11.3); Platelets 661 thou/uL (152-406); RBC Red Blood Cell Count 3.77 M/uL (3.86-4.86)
[2023-05-06 23:20] LABS: Protime INR 1.24
[2023-05-06 23:28] LABS: Albumin 3.1 g/dL (3.4-5.0); Bilirubin Total 0.7 mg/dL (0.2-1.0); Potassium 3.8 mEq/L (3.5-5.1); Protein, Total 6.8 g/dL (6.4-8.2)
[2023-05-06 23:30] LABS: SARS-CoV-2 Antigen Rapid Res Negative (Negative)
[2023-05-06] MEDS ORDERED: PROMETHAZINE INJ 25 MG/ML AMP ONE (23:33)
[2023-05-06] MEDS ORDERED: NA CHLORIDE 0.9% 1,000 ML ONE (23:33)
[2023-05-06 23:40] LABS: Specific Gravity 1.017 (1.005-1.030); Urine Bacteria <20 /HPF (<20); Urine Bilirubin NEGATIVE (Negative); Urine Blood 1+ (Negative); Urine Clarity Extremely Turbid (Clear); Urine Color Yellow (Yellow); Urine Glucose NEGATIVE (Negative); Urine Mucus Slight /HPF (None Seen); Urine Protein NEGATIVE (Negative); Urine Urobilinogen Normal (Normal); Urine pH 6.5 (5.0-7.0)
[2023-05-07] MEDS ORDERED: CEFTRIAXONE 2000 MG/VIAL ONE (00:21)
[2023-05-07] MEDS ORDERED: NA CHLORIDE 0.9% 100 ML ONE (00:21)
--- NOTE | 2023-05-07 00:35 | ER ---
Nurse's Notes [facility] Name: Mariel Aburto Age: 67 yrs Sex: Female : 1955 Arrival Date: 05/06/2023 Time: 22:13 Bed 5 Private MD: Diagnosis: Intractable nausea and vomiting;Sepsis;UTI Presentation: 05/06 22:24 Chief complaint: Patient states: got right hip surgery recently, nausea and vomiting rv since after discharge. was seen in ED yesterday, prescribed with Zofran and Phenergan. unable to hold anything down, zofran and phenergan are not working. denies abd pain. Coronavirus screen: At this time, the client does not indicate any symptoms associated with coronavirus-19. Ebola Screen: No symptoms or risks identified at this time. Initial Sepsis Screen: Does the patient meet any 2 criteria? No. Patient's initial sepsis screen is negative. Does the patient have a suspected source of infection? No. Patient's initial sepsis screen is negative. Risk Assessment: Do you want to hurt yourself or someone else? Patient reports no desire to harm self or others. Onset of symptoms was May 06, 2023. 22:24 Method Of Arrival: Ambulatory rv 22:24 Acuity: CHERRI 2 rv Triage Assessment: 22:26 General: Appears uncomfortable, Behavior is calm, cooperative. Pain: Denies pain. rv Neuro: Level of Consciousness is awake, alert, obeys commands, Oriented to person, place, time, situation. Cardiovascular: Capillary refill < 3 seconds Patient's skin is warm and dry. Respiratory: Airway is patent Respiratory effort is even, unlabored. GI: Reports nausea, vomiting, Patient currently denies abdominal pain. : No signs and/or symptoms were reported regarding the genitourinary system. Derm: Skin is intact. Historical: - Allergies: 22:26 Hydrocodone-Acetaminophen; rv 22:26 Sulfa (Sulfonamide Antibiotics); rv - PMHx: 22:26 Arthritis; Hypertension; rv - PSHx: 22:26 tubal ligation; hip surgery, left (tubal ligation); rv - Immunization history:: Adult Immunizations up to date. - Social history:: Smoking status: Patient denies any tobacco usage or history of. - Family history:: not pertinent. Screenin:28 [facility] ED Fall Risk Assessment (Adult) History of falling in the last 3 months, rv including since admission No falls in past 3 months (0 pts) Score/Fall Risk Level 0 - 2 = Low Risk Oriented to surroundings, Maintained a safe environment, Educated pt \T\ family on fall prevention, incl call for assistance when getting out of bed, Assessed \T\ reinforced patient's understanding of fall precautions. Abuse screen: Denies threats or abuse. Denies injuries from another. Nutritional screening: No deficits noted. Tuberculosis screening: No symptoms or risk factors identified. Assessment: 23:00 General: Appears in no apparent distress. uncomfortable, ill, slender, Behavior is vc1 calm, cooperative, appropriate for age, Reports fever for 12-24 hours. Pain: Denies pain. Neuro: Level of Consciousness is awake, alert, obeys commands, Oriented to person, place, time, situation, Appropriate for age. Cardiovascular: Heart tones S1 S2 Rhythm is sinus tachycardia. Respiratory: Airway is patent Respiratory effort is even, unlabored, Respiratory pattern is regular, symmetrical, Breath sounds are clear. GI: Reports nausea, vomiting, Patient currently denies abdominal pain, diarrhea. GI: Abdomen is round non-distended. : No deficits noted. No signs and/or symptoms were reported regarding the genitourinary system. EENT: No deficits noted. No signs and/or symptoms were reported regarding the EENT system. Derm: Wound noted Other: surgical wound to right hip. Musculoskeletal: Circulation, motion, and sensation intact. Range of motion: intact in all extremities. 05/07 00:00 Reassessment: No changes from previously documented assessment. Patient and/or family vc1 updated on plan of care and expected duration. Pain level reassessed. Patient is alert, oriented x 3, equal unlabored respirations, skin warm/dry/pink. 00:45 GI: Pt is actively vomiting Reports nausea, vomiting. vc1 01:54 Reassessment: Patient and/or family updated on plan of care and expected duration. Pain vc1 level reassessed. Patient is alert, oriented x 3, equal unlabored respirations, skin warm/dry/pink. Patient states feeling better. Patient states symptoms have improved. 04:00 Reassessment: No changes from previously documented assessment. Patient and/or family vc1 updated on plan of care and expected duration. Pain level reassessed. Patient is alert, oriented x 3, equal unlabored respirations, skin warm/dry/pink. Vital Signs: 05/06 22:24 BP 152 / 78; Pulse 113; Resp 20; Temp 100.5; Pulse Ox 96% ; Weight 78.02 kg; Height 5 rv ft. 5 in. ; 05/07 00:08 BP 149 / 84; Pulse 96; Resp 13; Pulse Ox 100% on R/A; tm6 01:00 BP 169 / 91; Pulse 106; Resp 22; Pulse Ox 100% ; vc1 02:00 BP 180 / 100; Pulse 104; Resp 26; Pulse Ox 100% ; vc1 03:00 BP 152 / 77; Pulse 102; Resp 28; Pulse Ox 100% ; vc1 04:00 BP 161 / 79; Pulse 100; Resp 20; Pulse Ox 100% ; vc1 04:17 Temp 98.9; vc1 05/06 22:24 Body Mass Index 28.62 (78.02 kg, 165.1 cm) rv ED Course: 05/06 22:16 Patient arrived in ED. kj1 22:18 Soham Rubio MD is Attending Physician. rt 22:26 Triage completed. rv 22:26 Arm band placed on right wrist. rv 22:28 Patient has correct armband on for positive identification. Client placed on continuous rv cardiac and pulse oximetry monitoring. NIBP monitoring applied. conveyor monitor on. 22:49 Chest Single View XRAY In Process Unspecified. EDMS 23:11 First set of blood cultures drawn by me, COVID swab sent to lab. Flu and/or RSV swab vc1 sent to lab. 23:26 Second set of blood cultures drawn Urine collected: clean catch specimen, clear. vc1 23:30 Inserted saline lock: 20 gauge in left antecubital area, using aseptic technique. vc1 05/07 00:34 Ethan Aguilar MD is Hospitalizing Provider. rt 04:10 Provided Education on: NPO. vc1 04:10 No provider procedures requiring assistance completed. Patient admitted, IV remains in vc1 place. 06:03 Malena Wade RN is Primary Nurse. vc1 Administered Medications: 05/06 23:43 Drug: NS 0.9% IV 1000 ml IV at 1 bolus Per protocol; 1000 mL bolus Route: IV; Rate: 1 vc1 bolus; Site: left antecubital; 05/07 04:13 Follow up: IV Status: Completed infusion; IV Intake: 1000ml vc1 05/06 23:43 Drug: Promethazine IVP 12.5 mg IVP once Route: IVP; Site: left antecubital; vc1 05/07 00:15 Follow up: Response: No adverse reaction; No change in condition vc1 00:46 Drug: Rocephin - Rocephin (cefTRIAXone) IVPB 2 grams IVPB once over 30 mins; (mix in tm6 100 mL NS) Route: IVPB; Infused Over: 30 mins; Site: left antecubital; 01:00 Follow up: IV Status: Completed infusion; IV Intake: 10ml vc1 00:47 Drug: Promethazine IVP 12.5 mg IVP once Route: IVP; Site: left antecubital; tm6 01:00 Follow up: Response: No adverse reaction; Nausea is decreased vc1 Medication: 05/06 22:28 VIS not applicable for this client. rv Intake: 05/07 01:00 IV: 10ml; Total: 10ml. vc1 04:13 IV: 1000ml; Total: 1010ml. vc1 Outcome: 00:34 Decision to Hospitalize by Provider. rt 04:10 Admitted to ER Hold. Please see [facility] for further documentation. vc1 04:10 Condition: good 04:10 Instructed on the need for admit, 06:04 Patient left the ED. vc1 Signatures: Dispatcher [employer] EDMS Judd Kidd RN RN rv Kaela Dill kj1 Malena Wade RN RN vc1 Soham Rubio MD MD rt Shiraz Flores RN RN tm6 Corrections: (The following items were deleted from the chart) 05/06 22:28 22:24 Chief complaint: Patient states: got right hip surgery recently, nausea and rv vomiting since after discharge. was seen in ED yesterday, prescribed with Zofran and Phenergan. unable to hold anything down, zofran and phenergan are not working. rv 22:33 22:24 Chief complaint: Patient states: got right hip surgery recently, nausea and rv vomiting since after discharge. was seen in ED yesterday, prescribed with Zofran and Phenergan. unable to hold anything down, zofran and phenergan are not working. denies abd pain. rv
--- NOTE | 2023-05-07 00:35 | EDPHYS ---
Physician Documentation [facility] Name: Mariel Aburto Age: 67 yrs Sex: Female : 1955 Arrival Date: 05/06/2023 Time: 22:13 Bed 5 Private MD: ED Physician Soham Rubio HPI: 05/06 23:21 This 67 yrs old Female presents to ER via Ambulatory with complaints of Nausea/Vomiting.rt 23:21 Patient presents to the ED with nausea, vomiting for the past week. She was seen in the rt ED yesterday, improvement of symptoms, subsequently discharged, she has not been able to tolerate anything by mouth at home including her antiemetics. Reports that fever at triage is new to her. Denies other acute complaints, symptoms are moderate in severity, no other aggravating or elevating factors.. Historical: - Allergies: 22:26 Hydrocodone-Acetaminophen; rv 22:26 Sulfa (Sulfonamide Antibiotics); rv - PMHx: 22:26 Arthritis; Hypertension; rv - PSHx: 22:26 tubal ligation; hip surgery, left (tubal ligation); rv - Immunization history:: Adult Immunizations up to date. - Social history:: Smoking status: Patient denies any tobacco usage or history of. - Family history:: not pertinent. ROS: 23:21 Constitutional: Negative for fever, chills, and weight loss, Cardiovascular: Negative rt for chest pain, palpitations, and edema, Respiratory: Negative for shortness of breath, cough, wheezing, and pleuritic chest pain, MS/Extremity: Negative for injury and deformity, Skin: Negative for injury, rash, and discoloration, Neuro: Negative for headache, weakness, numbness, tingling, and seizure, Psych: Negative for depression, anxiety, suicide ideation, homicidal ideation, and hallucinations, 23:21 Abdomen/GI: Positive for nausea and vomiting, Negative for abdominal pain, diarrhea, Exam: 23:21 Constitutional: This is a well developed, well nourished patient who is awake, alert, rt and in no acute distress. Head/Face: Normocephalic, atraumatic. Chest/axilla: Normal chest wall appearance and motion. Nontender with no deformity. No lesions are appreciated. Cardiovascular: Regular rate and rhythm with a normal S1 and S2. No gallops, murmurs, or rubs. Normal PMI, no JVD. No pulse deficits. Respiratory: Lungs have equal breath sounds bilaterally, clear to auscultation and percussion. No rales, rhonchi or wheezes noted. No increased work of breathing, no retractions or nasal flaring. Abdomen/GI: Soft, non-tender, with normal bowel sounds. No distension or tympany. No guarding or rebound. No evidence of tenderness throughout. Skin: Warm, dry with normal turgor. Normal color with no rashes, no lesions, and no evidence of cellulitis. Neuro: Awake and alert, GCS 15, oriented to person, place, time, and situation. Cranial nerves II-XII grossly intact. Motor strength 5/5 in all extremities. Sensory grossly intact. Cerebellar exam normal. Normal gait. Psych: Awake, alert, with orientation to person, place and time. Behavior, mood, and affect are within normal limits. 23:21 Musculoskeletal/extremity: Surgical site is clean, dry, intact, no surrounding erythema, no purulence. 05/07 00:31 ECG was reviewed by the Attending Physician. rt Vital Signs: 05/06 22:24 BP 152 / 78; Pulse 113; Resp 20; Temp 100.5; Pulse Ox 96% ; Weight 78.02 kg; Height 5 rv ft. 5 in. ; 05/07 00:08 BP 149 / 84; Pulse 96; Resp 13; Pulse Ox 100% on R/A; tm6 01:00 BP 169 / 91; Pulse 106; Resp 22; Pulse Ox 100% ; vc1 02:00 BP 180 / 100; Pulse 104; Resp 26; Pulse Ox 100% ; vc1 03:00 BP 152 / 77; Pulse 102; Resp 28; Pulse Ox 100% ; vc1 04:00 BP 161 / 79; Pulse 100; Resp 20; Pulse Ox 100% ; vc1 04:17 Temp 98.9; vc1 05/06 22:24 Body Mass Index 28.62 (78.02 kg, 165.1 cm) rv MDM: 05/06 22:29 Patient medically screened. rt 05/07 00:31 Differential diagnosis: Nausea, vomiting, fever. Data reviewed: vital signs, nurses rt notes, lab test result(s), EKG, radiologic studies. Consideration of Admission/Observation Patient was admitted/placed on observation. Management of patient was discussed with the following: Hospitalist: Agrees to admit. I considered the following discharge prescriptions or medication management in the emergency department Medications were administered in the Emergency Department. See MAR. Independent interpretation of the following test(s) in the Emergency Department X-Ray: My interpretation is No consolidation seen on interpretation of x-ray images. Test considered but Not performed: CT: No abdominal tenderness, CT abdomen pelvis not indicated. Care significantly affected by the following chronic conditions: Hypertension. Counseling: I had a detailed discussion with the patient and/or guardian regarding the historical points, exam findings, and any diagnostic results supporting the discharge/admit diagnosis, lab results, radiology results, the need for further work-up and treatment in the hospital. Response to treatment: the patient's symptoms have mildly improved after treatment. ED course: Patient presented with fever, tachycardia, but without clear source. Once UTI was identified, antibiotics were given.. 05/06 22:39 Order name: Blood Culture Adult (2) rt 05/06 22:39 Order name: CBC with Diff; Complete Time: 23:39 rt 05/06 22:39 Order name: CMP; Complete Time: 23:39 rt 05/06 22:39 Order name: Lactate w/ 2H reflex if indic.; Complete Time: 23:39 rt 05/06 22:39 Order name: Protime (+inr); Complete Time: 23:39 rt 05/06 22:39 Order name: Ptt, Activated; Complete Time: 23:39 rt 05/06 22:39 Order name: Urinalysis w/ reflexes; Complete Time: 00:04 rt 05/06 22:39 Order name: SARS RAPID; Complete Time: 23:39 rt 05/06 22:39 Order name: Influenza Screen (a \T\ B); Complete Time: 23:39 rt 05/06 23:44 Order name: Urine Culture EDMS 05/07 02:17 Order name: Basic Metabolic Panel EDMS 05/07 02:17 Order name: Basic Metabolic Panel EDMS 05/07 02:17 Order name: Basic Metabolic Panel EDMS 05/07 02:17 Order name: Basic Metabolic Panel EDMS 05/07 02:17 Order name: CBC with Automated Diff EDMS 05/07 02:17 Order name: CBC with Automated Diff EDMS 05/07 02:17 Order name: CBC with Automated Diff EDMS 05/07 02:17 Order name: CBC with Automated Diff EDMS 05/07 04:26 Order name: Glucose, Ancillary Testing EDMS 05/06 22:39 Order name: Chest Single View XRAY rt 05/06 22:39 Order name: EKG; Complete Time: 22:40 rt 05/06 22:39 Order name: Accucheck; Complete Time: 23:43 rt 05/06 22:39 Order name: Cardiac monitoring; Complete Time: 23:43 rt 05/06 22:39 Order name: EKG - Nurse/Tech; Complete Time: 00:05 rt 05/06 22:39 Order name: IV Saline Lock - Large Bore; Complete Time: 23:43 rt 05/06 22:39 Order name: Labs collected and sent; Complete Time: :43 rt 05/06 22:39 Order name: O2 Per Protocol; Complete Time: 23:43 rt 05/06 22:39 Order name: O2 Sat Monitoring; Complete Time: 23:43 rt 05/06 22:39 Order name: Vital Signs; Complete Time: 23:43 rt EC:31 Rate is 100 beats/min. Rhythm is regular, Normal Sinus Rhythm with No ectopy. Left axis rt deviation noted. MD interval is normal. QRS interval is normal. QT interval is normal. No Q waves. No ST changes noted. Administered Medications: 05/06 23:43 Drug: NS 0.9% IV 1000 ml IV at 1 bolus Per protocol; 1000 mL bolus Route: IV; Rate: 1 vc1 bolus; Site: left antecubital; 05/07 04:13 Follow up: IV Status: Completed infusion; IV Intake: 1000ml vc1 05/06 23:43 Drug: Promethazine IVP 12.5 mg IVP once Route: IVP; Site: left antecubital; vc1 05/07 00:15 Follow up: Response: No adverse reaction; No change in condition vc1 00:46 Drug: Rocephin - Rocephin (cefTRIAXone) IVPB 2 grams IVPB once over 30 mins; (mix in tm6 100 mL NS) Route: IVPB; Infused Over: 30 mins; Site: left antecubital; 01:00 Follow up: IV Status: Completed infusion; IV Intake: 10ml vc1 00:47 Drug: Promethazine IVP 12.5 mg IVP once Route: IVP; Site: left antecubital; tm6 01:00 Follow up: Response: No adverse reaction; Nausea is decreased vc1 Disposition Summary: 05/07/23 00:34 Hospitalization Ordered Notes: Hospitalization Status: Inpatient Admission rt Provider: Ethan Aguilar rt Condition: Stable rt Problem: new rt Symptoms: have improved rt Bed/Room Type: Standard rt Location: Telemetry/MedSurg (Inpatient)(05/07/23 03:50) cg Room Assignment: [facility](05/07/23 03:50) Diagnosis - Intractable nausea and vomiting rt - Sepsis rt - UTI rt Forms: - Medication Reconciliation Form rt - SBAR form rt - Leadership Thank You Letter rt Signatures: Dispatcher [employer] Magdalena Ceron, MARIA RN cg Judd Kidd RN RN rv Malena Wade RN RN vc1 Soham Rubio MD MD rt Shiraz Flores RN RN tm6 Corrections: (The following items were deleted from the chart) 02:01 00:34 Telemetry/MedSurg (Inpatient) rt cg 02:01 00:34 rt cg 03:50 02:01 [facility] ER HOLD cg cg 03:50 02:01 ERHOLD- cg cg
[2023-05-07] MEDS ORDERED: PROMETHAZINE INJ 25 MG/ML AMP ONE (00:43)
[2023-05-07] MEDS ORDERED: ACETAMINOPHEN 325 MG TABLET PO PRN (02:12)
--- NOTE | 2023-05-07 02:16 | P.HP ---
Certification for Inpatient Patient admitted to: Inpatient With expected LOS: >2 Midnights Practitioner: I am a practitioner with admitting privileges, knowledge of patient current condition, hospital course, and medical plan of care. Services: Services provided to patient in accordance with Admission requirements found in Title 42 Section 412.3 of the Code of Federal Regulations Patient History Date of Service: 05/07/23 Reason for admission: Urinary tract infection, intractable nausea vomiting and abdominal pain. History of Present Illness: Six 7-year-old female patient with medical history significant for hypertension and arthritis was evaluated for episode of intractable nausea vomiting. She had a UA that was significantly concerning for urinary tract infection and also white cell count elevation on CBC. She was started on antiemetic medication and antibiotic therapy and was admitted for inpatient care. She reports burning micturition for couple of days with associated nausea and pain in the abdomen. She also has burning on passing urine. No diarrhea reported. Allergies hydrocodone Adverse Reaction (Verified 04/11/23 04:52) Nausea/Vomiting Sulfa (Sulfonamide Antibiotics) Adverse Reaction (Verified 04/11/23 04:52) Nausea/Vomiting Home Medications: Meloxicam [Mobic*] 15 mg PO BEDTIME 06/26/21 Alendronate Sodium 70 mg PO SEECOM 04/11/23 Losartan Potassium [Cozaar*] 50 mg PO BEDTIME 04/11/23 Montelukast [Singulair*] 10 mg PO BEDTIME 04/11/23 Albuterol Inhaler [Ventolin Inhaler*] 2 puff IH Q6H PRN 14 Days #1 inh 04/12/23 Lactobacillus Acidophilus [Acidophilus Lactobacilli] 1 each PO BID 5 Days #10 tab 04/12/23 - Past Medical/Surgical History Diabetic: No -: HTN -: Arthritis -: tubal ligation - Family History Mother -: Heart disease Father -: Cancer - Social History Alcohol use: No CD- Drugs: No Caffeine use: Yes Review of Systems General: Weakness, Malaise Eyes: Unremarkable ENT: Unremarkable Respiratory: Unremarkable Cardiovascular: Unremarkable Gastrointestinal: Abdominal Pain Genitourinary: Dysuria, Frequency, Urgency Musculoskeletal: Unremarkable Integumentary: Unremarkable Neurological: Unremarkable Lymphatics: Unremarkable Physical Examination - Physical Exam General: Alert, Oriented x3 HEENT: Atraumatic Neck: Supple Respiratory: Normal air movement Cardiovascular: Regular rate/rhythm, Normal S1 S2 Gastrointestinal: Soft and benign Musculoskeletal: No swelling Neurological: Normal speech, Normal strength at 5/5 x4 extr - Studies Laboratory Data (last 24 hrs) 05/06/23 05/06/23 05/06/23 22:56 22:56 22:56 WBC 16.90 H Hgb 10.2 L Hct 30.5 L Plt Count 661 H PT 13.6 H INR 1.24 APTT 30.0 Sodium 133 L Potassium 3.8 BUN 13 Creatinine 0.48 L Glucose 135 H Total Bilirubin 0.7 AST 16 ALT 26 Alkaline Phosphatase 75 Microbiology Data (last 24 hrs): 05/06/23 22:56 Nasopharnyx Influenza Type A Antigen Screen - Final 05/06/23 22:56 Nasopharnyx Influenza Type B Antigen Screen - Final Assessment and Plan - Plan Urinary tract infection: UA significantly concerning. Blood and urine culture taken. Continue empiric antibiotic therapy Rocephin pending further review. Continue pain control with as needed Tylenol. Hypertension: We will monitor vital signs per unit protocol and continue antihypertensive medications. Prophylaxis: Lovenox for DVT prophylaxis. CODE STATUS: Full code. Disposition: We will treat her UTI and discharge her when she is deemed clinically stable and plan of care is finalized. - Advance Directives Does patient have a Living Will: No Does patient have a Durable POA for Healthcare: No
[2023-05-07] MEDS: NA CHLORIDE 0.9% 1,000 ML IV SCH (03:00)
[2023-05-07 04:12] VITALS: BMI 28.6
[2023-05-07] MEDS ORDERED: NA CHLORIDE 0.9% 1,000 ML ONE (04:23)
--- NOTE | 2023-05-07 07:25 | P.PN ---
Date of Service: 05/07/23 Subjective: Feels ~same as yesterday. Doesn't feel worse Reports persistent nausea/vomiting since hip replacement early this month in April. no reported pain from hip Reports heart burn last few weeks - felt relief with tums at home this past week but has never taken anything consistently +worsening urinary urgency past few days. No diarrhea 100.5 temp this morning ROS: 10 point ROS as noted above, otherwise negative Physical Exam: GEN: Alert, oriented, NAD HEENT: Normal conjunctiva, sclera anicteric CV: Regular rate and rhythm, no edema Pulm: Nonlabored respirations on room air, clear bilaterally ABD: Soft, nontender, nondistended Neuro: Normal speech, normal affect vitals reviewed Problem List: Sepsis likely secondary to UTI, present on admission Duodenitis Right hip degenerative joint disease s/p recent right hip arthroplasty (~04/27/23) Intractable Nausea / Vomiting Hypertension Sepsis likely secondary to UTI, present on admission Intractable Nausea / Vomiting Duodenitis Reports persistent nausea/vomiting since hip replacement early this month in April. +worsening urinary urgency past few days. No diarrhea Recently admitted last month for UTI 04/11/23, urine cx grew klebsiella pneumoniae at that time. Discharged with 5 days of PO levaquin. CXR (05/06): atelectatic change vs infiltrate infrahilar regions bilaterally L > R. Unchanged from prior study 04/11/23 Urinalysis concerning for UTI. +leukocytosis Blood cx (05/06): pending urine cx (05/06): pending given rocephin in ED Continue empiric rocephin (05/07-) Follow urine and blood cultures CTA abd/pelvis (05/07): Duodenal inflammation Reports heart burn last few weeks - felt relief with tums at home this past week but has never taken anything consistently previously taking bebo aspirin for ~2 weeks after hip replacement start PPI consider carafate one ready for PO Right hip degenerative joint disease s/p recent right hip arthroplasty (~04/27/23) Patient noted to have elective hip replacement on 04/27/23 in [place] minimal to no reported pain from hip PRN analgesics Hypertension confirm home meds, restart as appropriate VTE: Lovenox Code: Full Dispo: Home, ~2 days Pending cx results, afebrile > 24 hours, nausea/vomiting improves
[2023-05-07] MEDS: ENOXAPARIN 40 MG/0.4 ML SQ SCH (08:07)
[2023-05-07] MEDS: ONDANSETRON 4 MG/2 ML VIAL IV PRN (08:08)
--- NOTE | 2023-05-07 08:29 | RAD REPORT ---
EXAM DESCRIPTION: CT - Abdomen Pelvis W Contrast - 05/07/2023 8:21 am CLINICAL HISTORY: Abdominal pain COMPARISON: March 2023 TECHNIQUE: Computed axial tomography of the abdomen pelvis was obtained. 100 cc Isovue-300 was admin istered intravenously. Oral contrast was not requested which limits evaluation of bowel and appendix All CT scans are performed using dose optimization technique as appropriate and may include automated exposure control or mA/KV adjustment according to patient size. FINDINGS: Hepatic cysts unchanged. Remainder of the visualized liver unremarkable Spleen, pancreas, adrenals and kidneys unremarkable. Wall of the second and third portions of the duodenum thickened with mild stranding in the adjacent f at. Normal appendix. No adnexal mass There is no evidence of diverticulitis. Right hip arthroplasty IMPRESSION: Wall of the second and third portions of the duodenum thickened with mild stranding in t he adjacent fat. This probably indicates duodenal inflammation
[2023-05-07] MEDS ORDERED: SODIUM CHLORIDE 0.9% 10ML INJ IV PRN (08:34)
[2023-05-07 10:05] LABS: Hematocrit 28.6 % (36.0-45.0); Lymphocytes % 13.3 % (15.3-44.8); MCV 81.2 fL (80-100); MPV 6.7 fL (7.6-11.3); Platelets 614 thou/uL (152-406); RBC Red Blood Cell Count 3.52 M/uL (3.86-4.86)
[2023-05-07 10:21] LABS: Potassium 4.8 mEq/L (3.5-5.1)
[2023-05-07] MEDS: PANTOPRAZOLE 40 MG INJ IVP SCH (10:25)
[2023-05-07] MEDS: HYDRALAZINE HCL 20 MG/ML VIAL IV PRN (16:41)
--- NOTE | 2023-05-07 20:12 | RAD REPORT ---
EXAM DESCRIPTION: RAD - Chest Single View - 05/06/2023 10:47 pm CLINICAL HISTORY: 67 years Female FEVER COMPARISON: None TECHNIQUE: AP view of the chest was obtained. FINDINGS: Cardiac size is within normal limits. Central vessels are not increased. No effusions bilaterally. Infrahilar airspace opacities bilaterally left greater than right. No conso lidation. No pneumothorax. IMPRESSION: Atelectatic change versus infiltrate infrahilar regions bilaterally left greater than ri ght. Appearance unchanged when correlated with the prior study. Electronically signed by: Lien Radford MD 05/06/2023 11:04 PM REEL STRIPPER Due to temporary technical issues with the PACS/Fluency reporting system, reports are being signed by the in house radiologists without review as a courtesy to insure prompt reporting. The interpreting radiologist is fully responsible for the content of the report.
[2023-05-07] MEDS: LOSARTAN POTASSIUM 50 MG TABLET PO SCH (20:25)
[2023-05-08] MEDS: CEFTRIAXONE 1,000 MG in NA CHLORIDE 0.9% 50 ML IVPB SCH
[2023-05-08 04:00] LABS: Absolute Lymphocytes (CBC) 2.3 K/uL (0.7-4.9); Hematocrit 28.5 % (36.0-45.0); Lymphocytes % 14.2 % (15.3-44.8); MCV 81.7 fL (80-100); MPV 6.7 fL (7.6-11.3); Platelets 555 thou/uL (152-406); RBC Red Blood Cell Count 3.49 M/uL (3.86-4.86)
[2023-05-08] MEDS: NA CHLORIDE 0.9% 1,000 ML IV SCH (06:16)
[2023-05-08] MEDS ORDERED: ALBUTEROL INHALER 60 PUFF/8 GM IH PRN (06:16)
[2023-05-08] MEDS: SUCRALFATE 1 GM TABLET PO SCH (08:26)
--- NOTE | 2023-05-08 09:09 | P.PN ---
Date of Service: 05/08/23 Subjective: Feeling better today tolerated clear liquids yesterday. nausea improved prior to taking carafate this morning no new / worsening problems afebrile ROS: 10 point ROS as noted above, otherwise negative Physical Exam: GEN: Alert, oriented, NAD HEENT: Normal conjunctiva, sclera anicteric CV: Regular rate and rhythm, no edema Pulm: Nonlabored respirations on room air, clear bilaterally ABD: Soft, nontender, nondistended Neuro: Normal speech, normal affect vitals reviewed Problem List: Sepsis likely secondary to acute cystitis, present on admission Intractable Nausea / Vomiting Duodenitis Right hip degenerative joint disease s/p recent right hip arthroplasty (04/27/23) Hypertension Sepsis likely secondary to acute cystitis, present on admission Intractable Nausea / Vomiting Duodenitis Reports persistent nausea/vomiting since hip replacement early this month in April. +worsening urinary urgency past few days. No diarrhea Recently admitted last month for UTI 04/11/23, urine cx grew klebsiella pneumoniae at that time. Discharged with 5 days of PO levaquin. CXR (05/06): atelectatic change vs infiltrate infrahilar regions bilaterally L > R. Unchanged from prior study 04/11/23 Blood cx (05/06): NGTD urine cx (05/06): 4+ GNR given rocephin in ED Continue empiric rocephin (05/07-) afebrile, leukocytosis 15.3 -> 16.1 (05/08) Follow urine and blood cultures CTA abd/pelvis (05/07): Duodenal inflammation Reports heart burn last few weeks - felt relief with tums at home this past week but has never taken anything consistently previously taking bebo aspirin for ~2 weeks after hip replacement continue PPI given carafate x1 (05/07), now dc'd will monitor off carafate and see how she tolerates PO, restart if needed advance to full liquids today at lunch, regular diet if tolerates Right hip degenerative joint disease s/p recent right hip arthroplasty (04/27/23) Patient noted to have elective hip replacement on 04/27/23 in [place]. minimal to no reported pain from hip PRN analgesics Hypertension confirm home meds, restart as appropriate VTE: Lovenox Code: Full Dispo: Home, ~1 day Pending cx results, afebrile > 24 hours
[2023-05-08] MEDS: MONTELUKAST 10 MG TAB PO SCH (21:11)
[2023-05-09] MEDS: NA CHLORIDE 0.9% 250 ML ONE (00:47)
[2023-05-09 03:19] LABS: Absolute Lymphocytes (CBC) 2.7 K/uL (0.7-4.9); Hematocrit 29.1 % (36.0-45.0); Lymphocytes % 16.3 % (15.3-44.8); MCV 81.7 fL (80-100); MPV 7.3 fL (7.6-11.3); Platelets 568 thou/uL (152-406); RBC Red Blood Cell Count 3.56 M/uL (3.86-4.86)
[2023-05-09 03:47] LABS: Potassium 3.7 mEq/L (3.5-5.1)
--- NOTE | 2023-05-09 07:18 | P.PN ---
Date of Service: 05/09/23 Subjective: feeling better today tolerating normal diet without issues off carafate. Nausea resolved urinary urgency resolved per patient no new / worsening problems afebrile ROS: 10 point ROS as noted above, otherwise negative Physical Exam: GEN: Alert, oriented, NAD HEENT: Normal conjunctiva, sclera anicteric CV: Regular rate and rhythm, no edema Pulm: Nonlabored respirations on room air, clear bilaterally ABD: Soft, nontender, nondistended Neuro: Normal speech, normal affect vitals reviewed Problem List: Sepsis likely secondary to acute cystitis, present on admission Intractable Nausea / Vomiting, resolved Duodenitis Right hip degenerative joint disease s/p recent right hip arthroplasty (04/27/23) Hypertension Sepsis likely secondary to acute cystitis, present on admission Intractable Nausea / Vomiting, resolved Duodenitis Reports persistent nausea/vomiting since hip replacement early this month in April. +worsening urinary urgency past few days. No diarrhea Recently admitted last month for UTI 04/11/23, urine cx grew klebsiella pneumoniae at that time. Discharged with 5 days of PO levaquin. CXR (05/06): atelectatic change vs infiltrate infrahilar regions bilaterally L > R. Unchanged from prior study 04/11/23 Blood cx (05/06): NGTD urine cx (05/06): E. coli Esbl rocephin (05/07-05/09) switched to merrem given culture sensitivity continue merrem (05/09-) afebrile, leukocytosis 16.1 -> 16.5 (05/09) may need PICC line for IV abx on discharge vs ?PO augmentin consult ID for abx CTA abd/pelvis (05/07): Duodenal inflammation Reports heart burn last few weeks - felt relief with tums at home this past week but has never taken anything consistently previously taking bebo aspirin for ~2 weeks after hip replacement continue PPI given carafate x1 (05/07), now dc'd tolerating normal diet without issues off carafate. Nausea resolved Right hip degenerative joint disease s/p recent right hip arthroplasty (04/27/23) Patient noted to have elective hip replacement on 04/27/23 in [place]. Patient reports having appointment coming up ~May 11 for removal of [place] minimal to no reported pain from hip PRN analgesics Hypertension confirm home meds, restart as appropriate VTE: Lovenox Code: Full Dispo: Home, ~1-2 days may need PICC line for IV abx, pending ID recs
[2023-05-09] MEDS: Meropenem 1,000 MG in NA CHLORIDE 0.9% 100 ML IV SCH (08:20)
[2023-05-09] MEDS: PANTOPRAZOLE 40MG TABLET PO SCH (16:31)
[2023-05-10 03:49] LABS: Absolute Lymphocytes (CBC) 2.5 K/uL (0.7-4.9); Hematocrit 28.2 % (36.0-45.0); Lymphocytes % 18.2 % (15.3-44.8); MCV 81.2 fL (80-100); MPV 7.1 fL (7.6-11.3); Platelets 575 thou/uL (152-406); RBC Red Blood Cell Count 3.48 M/uL (3.86-4.86)
[2023-05-10 03:54] LABS: Potassium 3.9 mEq/L (3.5-5.1)
--- NOTE | 2023-05-10 08:40 | P.CNS ---
Date of Consult: 05/10/23 Reason for Consult: ESBL UTI Chief Complaint: Urinary tract infection, intractable nausea vomiting and abdominal pain. History of Present Illness: Patient is a 67 yo female with a past medical history of hypertension and arthritis who presented to the ED with complaints of intractable nausea/vomiting and dysuria. Urine culture growing E.coli ESBL. Infectious disease was consulted. Allergies acetaminophen [From Percocet] Adverse Reaction (Verified 05/07/23 04:18) Nausea/Vomiting azithromycin Adverse Reaction (Verified 05/07/23 04:18) Nausea/Vomiting hydrocodone Adverse Reaction (Verified 04/11/23 04:52) Nausea/Vomiting oxycodone [From Percocet] Adverse Reaction (Verified 05/07/23 04:18) Nausea/Vomiting Sulfa (Sulfonamide Antibiotics) Adverse Reaction (Verified 04/11/23 04:52) Nausea/Vomiting Home Medications: Meloxicam [Mobic*] 15 mg PO BEDTIME 06/26/21 Alendronate Sodium 70 mg PO SEECOM 04/11/23 Losartan Potassium [Cozaar*] 50 mg PO BEDTIME 04/11/23 Montelukast [Singulair*] 10 mg PO BEDTIME 04/11/23 Albuterol Inhaler [Ventolin Inhaler*] 2 puff IH Q6H PRN 14 Days #1 inh 04/12/23 - Past Medical/Surgical History Diabetic: No -: HTN -: Arthritis -: tubal ligation - Family History Mother Medical History: Heart disease Father Medical History: Cancer - Social History Smoking Status: Never smoker Alcohol use: No CD- Drugs: No Caffeine use: Yes Place of Residence: Home Review of Systems 10-point ROS is otherwise unremarkable Physical Examination Temp Pulse Resp BP Pulse Ox 98.1 F 88 16 132/63 98 05/10/23 04:00 05/10/23 04:00 05/10/23 04:00 05/10/23 04:00 05/10/23 04:00 General: Alert, In no apparent distress, Oriented x3 HEENT: Atraumatic, Normocephalic Respiratory: Clear to auscultation bilaterally, Normal air movement Cardiovascular: No edema, Regular rate/rhythm Gastrointestinal: Normal bowel sounds, Soft and benign Integumentary: Other (right hip athroplasty surgical incision site) Neurological: Normal speech, Normal tone, Normal affect Laboratory data - Reviewed Microbiology Data - Reviewed Imagings Data: - Reviewed Conclusions/Impression: Problem List Sepsis secondary to acute cystitis Duodenitis Hypertension s/p right hip arthroplasty Sepsis secondary to Acute Cystitis - Urine culture 05/06: Escherichia coli ESBL - Previously on Rocephin (05/07-05/09) -> switched to meropenem 05/09 following urine culture results Leukocytosis improving (16.5 -> 13.6) Afebrile Recommendations - Continue antibiotic therapy for 7 days. Meropenem (05/09-05/16) - Monitor WBC and fever trends - Continue supportive care Case discussed with Lionel Gilmore
--- NOTE | 2023-05-10 10:16 | P.PN ---
Date of Service: 05/10/23 Subjective: feeling better today tolerating diet, no nausea no acute events overnight afebrile ROS: 10 point ROS as noted above, otherwise negative Physical Exam: GEN: Alert, oriented, NAD HEENT: Normal conjunctiva, sclera anicteric CV: Regular rate and rhythm, no edema Pulm: Nonlabored respirations on room air, clear bilaterally ABD: Soft, nontender, nondistended Neuro: Normal speech, normal affect vitals reviewed Problem List: Sepsis secondary to acute cystitis, present on admission Intractable Nausea/Vomiting, resolved Duodenitis Right hip degenerative joint disease s/p recent right hip arthroplasty (04/27/23) Hypertension Sepsis likely secondary to acute cystitis, present on admission Intractable Nausea / Vomiting, resolved Duodenitis Reports persistent nausea/vomiting since hip replacement early this month in April. +worsening urinary urgency past few days. No diarrhea Recently admitted last month for UTI 04/11/23, urine cx grew klebsiella pneumoniae at that time. Discharged with 5 days of PO levaquin. CXR (05/06): atelectatic change vs infiltrate infrahilar regions bilaterally L > R. Unchanged from prior study 04/11/23 Blood cx (05/06): NGTD urine cx (05/06): E. coli Esbl rocephin (05/07-05/09) switched to merrem given culture sensitivity continue merrem (05/09-05/16) afebrile, leukocytosis 16.1 -> 16.5 (05/09) needs PICC line vs midline for ~5 days of IV Merrem or invanz (End date: ~05/16/23) will confirm with SW/CM if HH are ok with midline ID consulted CTA abd/pelvis (05/07): Duodenal inflammation Reports heart burn last few weeks - felt relief with tums at home this past week but has never taken anything consistently previously taking bebo aspirin for ~2 weeks after hip replacement continue PPI given carafate x1 (05/07), now dc'd tolerating normal diet without issues off carafate. Nausea resolved Right hip degenerative joint disease s/p recent right hip arthroplasty (04/27/23) Patient noted to have elective hip replacement on 04/27/23 in [place]. Patient reports having appointment coming up wed ~May 12 for removal of aurora minimal to no reported pain from hip PRN analgesics Hypertension confirm home meds, restart as appropriate VTE: Lovenox Code: Full Dispo: Home, ~1 day needs PICC line vs midline for ~5 days of IV abx orders placed for outpatient abx / HH
--- NOTE | 2023-05-10 11:05 | EKG ---
Test Date: 2023-05-06 Test Time: 23:51:42 Die Designer: SKYE MEASUREMENT RESULTS: Intervals: Rate: 100 AK: 150 QRSD: 82 QT: 346 QTc: 446 Zwingle: P: 74 AK: 150 QRS: -34 T: 58 INTERPRETIVE STATEMENTS: Normal sinus rhythm Possible Left atrial enlargement Left axis deviation Possible Anterior infarct, age undetermined Abnormal ECG Compared to ECG 04/11/2023 00:25:35 Myocardial infarct finding now present Electronically Signed On 05-10-23 11:00:12 [employer] by Presley Colbert
[2023-05-10 12:23] VITALS: O2SAT 99
[2023-05-11 03:54] LABS: Absolute Lymphocytes (CBC) 2.3 K/uL (0.7-4.9); Hematocrit 28.3 % (36.0-45.0); Lymphocytes % 26.6 % (15.3-44.8); MCV 81.4 fL (80-100); MPV 7.3 fL (7.6-11.3); Platelets 532 thou/uL (152-406); RBC Red Blood Cell Count 3.47 M/uL (3.86-4.86)
--- NOTE | 2023-05-11 09:07 | P.PN ---
Date of Service: 05/11/23 Chief Complaint: Urinary tract infection, intractable nausea vomiting and abdominal pain. Subjective: In no apparent distress. No acute events overnight. Denies any new or worsening complaints. Denies any urinary symptoms. Plan of care discussed with patient and at bedside. pending discharge home with home health. Physical Examination Temp Pulse Resp BP Pulse Ox 97.3 F 80 14 128/59 L 98 05/11/23 08:00 05/11/23 08:00 05/11/23 08:00 05/11/23 08:00 05/11/23 08:00 General: Alert, In no apparent distress, Oriented x3 HEENT: Atraumatic, Normocephalic Respiratory: Clear to auscultation bilaterally, Normal air movement. Nonlabored respirations on room air. Cardiovascular: No edema, Regular rate/rhythm. Gastrointestinal: Normal bowel sounds, Soft and benign. Non-tender. Non- distended. Integumentary: right hip athroplasty surgical incision site Neurological: Normal speech, Normal tone, Normal affect Laboratory data - Reviewed Microbiology Data - Reviewed Imagings Data: - Reviewed Medications List: Reviewed Assessment and Plan Problem List Sepsis secondary to acute cystitis Duodenitis Hypertension s/p right hip arthroplasty Sepsis secondary to Acute Cystitis - Urine culture 05/06: Escherichia coli ESBL - Previously on Rocephin (05/07-05/09) -> switched to meropenem 05/09 following urine culture results Leukocytosis improving (16.5 -> 13.6 -> 8.7) Afebrile Recommendations - Continue antibiotic therapy for 7 days (05/09-05/16). Currently on Meropenem. OK to switch to Ertapenem 1g IV q24H upon discharge home with home health. - Monitor WBC and fever trends - Continue supportive care - Follow up with PCP as outpatient in 1-2 weeks. Case discussed with Lionel Gilmore
[2023-05-11] MEDS ORDERED: ERTAPENEM NA 1 GM in NA CHLORIDE 0.9% 100 ML IVPB ONE (14:00)
[2023-05-11] MEDS: ERTAPENEM NA 1 GM in NA CHLORIDE 0.9% 100 ML IVPB ONE (14:59)
--- NOTE | 2023-05-11 15:08 | P.DS ---
Admission Date: 05/07/23 Discharge Date: 05/11/23 Disposition: ROUTINE DISCHARGE Discharge Condition: FAIR Reason for Admission: Urinary tract infection, intractable nausea vomiting and abdominal pain. Brief History of Present Illness: 67-year-old female patient with medical history significant for hypertension and arthritis was evaluated for episode of intractable nausea vomiting. She had a UA that was significantly concerning for urinary tract infection and also white cell count elevation on CBC. She was started on antiemetic medication and antibiotic therapy and was admitted for inpatient care. She reported burning micturition for couple of days with associated nausea and pain in the abdomen. She also has burning on passing urine. No diarrhea reported. Patient was hospitalized for further management. Hospital Course: Diagnosis Sepsis secondary to acute cystitis, present on admission Intractable Nausea/Vomiting, resolved Duodenitis Right hip degenerative joint disease s/p recent right hip arthroplasty (04/27/23) Hypertension Sepsis likely secondary to acute cystitis, present on admission Intractable Nausea / Vomiting, resolved Duodenitis Urine culture noted to grow resistant E. coli Esbl. Patient initially on IV Rocephin which was switched to IV merrem given culture sensitivity. Her symptoms improved. Patient was seen and evaluated by infectious disease who recommended outpatient treatment with IV Invanz.. Midline was placed for the IV antibiotics. Patient is to complete ~5 more days of IV abx for a total of 1 week of antibiotics (End date: 05/15/23) Patient was feeling better, nausea / urinary urgency resolved, afebrile for > 24 hour, and was deemed stable for discharge home. During her hospitalization, patient reported new heart burn thats been ongoing for last few weeks. Patient states she had been feeling some relief with tums at home this past week but has never consistently taken anything in the past. Noted she takes Mobic every night for pain. CT abdomen / pelvis had findings consistent with duodenal inflammation. Patient was given PPI and had improvement of her symptoms. Patients diet was advanced slowly and continued to improve. Patient tolerating regular diet on day of discharge without issues. Advised patient to follow up with PCP / GI in near future for further discussion and to consider EGD for further evaluation. She is prescribed Protonix for outpatient treatment. Vital Signs/Physical Exam: Temp Pulse Resp BP Pulse Ox 98.0 F 78 12 123/58 L 98 05/11/23 12:00 05/11/23 12:00 05/11/23 12:00 05/11/23 12:00 05/11/23 12:00 General: Alert, In no apparent distress, Oriented x3 HEENT: Mucous membr. moist/pink Neck: Supple, JVD not distended Respiratory: Clear to auscultation bilaterally, Normal air movement Cardiovascular: No edema, Regular rate/rhythm, Normal S1 S2, No murmurs Capillary refill: <2 Seconds Gastrointestinal: Normal bowel sounds, Soft and benign, Non-distended, No tenderness Musculoskeletal: No swelling, No tenderness Integumentary: No rashes, No cyanosis Neurological: Normal strength at 5/5 x4 extr, Cranial nerves 3-12 intact Lymphatics: No axilla or inguinal lymphadenopathy Laboratory Data at Discharge: WBC 8.70 thou/uL (4.3-10.9) 05/11/23 03:01 Hgb 9.3 g/dL (12.0-15.0) L 05/11/23 03:01 Hct 28.3 % (36.0-45.0) L 05/11/23 03:01 Plt Count 532 thou/uL (152-406) H 05/11/23 03:01 PT 13.6 SECONDS (9.5-12.5) H 05/06/23 22:56 INR 1.24 05/06/23 22:56 APTT 30.0 SECONDS (24.3-36.9) 05/06/23 22:56 Sodium 139 mEq/L (136-145) 05/10/23 03:11 Potassium 3.9 mEq/L (3.5-5.1) 05/10/23 03:11 BUN 15 mg/dL (7-18) 05/10/23 03:11 Creatinine 0.50 mg/dL (0.55-1.02) L 05/10/23 03:11 Glucose 116 mg/dL (74-106) H 05/10/23 03:11 Magnesium 2.0 mg/dL (1.6-2.4) 05/10/23 03:11 Total Bilirubin 0.7 mg/dL (0.2-1.0) 05/06/23 22:56 AST 16 U/L (15-37) 05/06/23 22:56 ALT 26 U/L (13-56) 05/06/23 22:56 Alkaline Phosphatase 75 U/L (45-117) 05/06/23 22:56 Home Medications: Alendronate Sodium 70 mg PO SEECOM 04/11/23 Losartan Potassium [Cozaar*] 50 mg PO BEDTIME 04/11/23 Montelukast [Singulair*] 10 mg PO BEDTIME 04/11/23 Albuterol Inhaler [Ventolin Inhaler*] 2 puff IH Q6H PRN 14 Days #1 inh 04/12/23 Pantoprazole [Protonix Tab*] 40 mg PO BIDAC #60 tab 05/11/23 New Medications: Pantoprazole [Protonix Tab*] 40 mg PO BIDAC #60 tab Physician Discharge Instructions: Patient presented with intractable nausea/vomiting, worsening urinary urgency since her hip replacement earlier this month. Urinalysis was concerning for UTI. Patient initially given IV rocephin however did not have much improvement. Urine culture noted to grow resistant E. coli Esbl. Antibiotics were switched to IV merrem given culture sensitivity and patient had improvement of her symptoms. ID was consulted for assistance of antibiotic choice. Patient needing PICC line / midline for IV antibiotics. Patient is to complete ~5 more days of IV abx for a total of 1 week of antibiotics (End date: 05/15/23) Patient was feeling better, nausea / urinary urgency resolved, afebrile for > 24 hour, and was deemed stable for discharge home. During her hospitalization, patient reported new heart burn thats been ongoing for last few weeks. Patient states she had been feeling some relief with tums at home this past week but has never consistently taken anything in the past. CT abdomen / pelvis had findings consistent with duodenal inflammation. Patient was given PPI and had improvement of her symptoms. Patients diet was advanced slowly and continued to improve. Patient tolerating regular diet on day of discharge without issues. Advised patient to follow up with PCP / GI in near future for further discussion and to consider EGD for further evaluation. Medications: Merrem or invanz x5 days (end date: 05/15/23) Protonix? Follow up: PCP 3-5 days Ortho to have aurora removed as previously scheduled GI in near future for EGD Diet: AHA Activity: Ad lewis Followup: Tierney Dorsey, [Primary Care Provider] - Time spent managing pt's care (in minutes): 36
[2023-05-11] MEDS ORDERED: ERTAPENEM SODIUM 1 GM VIAL IVPB ONE (17:00)
[2023-05-11 17:34] VITALS: BP 133/62; TEMP 97.8
== END 2023-05-11 17:15 | disposition home health service (06) | DRG 872 ==
LOC: ER 22:13 → ERHOLD 05-07 02:12 → 2ND 05-07 05:40
PROVIDERS: ADMIT Internal Medicine Nephrology; ATTEND Internal Medicine
PROC: 05HC33Z Insertion of Infusion Device into Left Basilic Vein, Percutaneous Approach (ICD-10-PCS; principal; 2023-05-10)
DX: A41.51 Sepsis due to Escherichia coli [E. coli] (principal); N30.00 Acute cystitis without hematuria; Z16.12 Extended spectrum beta lactamase (ESBL) resistance; I10 Essential (primary) hypertension; M16.11 Unilateral primary osteoarthritis, right hip; M19.90 Unspecified osteoarthritis, unspecified site; K29.80 Duodenitis without bleeding; Z88.5 Allergy status to narcotic agent; Z88.2 Allergy status to sulfonamides; Z11.52 Encounter for screening for COVID-19; Z98.51 Tubal ligation status; Z79.899 Other long term (current) drug therapy
CPT/HCPCS: 36415; 71045; 74177; 80048; 80053; 81001; 82947; 83605; 83735; 85025; 85610; 85730; 87040; 87077; 87086; 87088; 87186; 87804; 87811; 93005; 96361; 96374; 96375; 99285; C9113; J0360; J0696; J1335; J1650; J2185; J2405; J2550; J7030; J7050; Q9967

== ENCOUNTER → 2024-11-17 | Day surgery (SDC) | payer OTHER ==
[~2024-11-17] MED LIST changes: -DIPHENHYDRAMINE 50 MG/ML VIAL ONE; +ESMOLOL HCL 10 ML IV ONE; +FENTANYL CITR 100 MCG/2 ML ONE; +KETOROLAC 30 MG/ML INJ ONE; +LIDOCAINE 2% MPF 5 ML VIAL ONE; -METOCLOPRAMIDE 10 MG/2mL INJ ONE; +MIDAZOLAM HCL 2 MG/2 ML INJ ONE; -NA CHLORIDE 0.9% 1,000 ML ONE; -NA CHLORIDE 0.9% 50 ML ONE; -PROMETHAZINE INJ 25 MG/ML AMP ONE; +Ringers Lactate 500 ML IV ONE
[2024-11-17] MEDS: SCOPOLAMINE HYDROBROMIDE PATCH TD ONE (09:50)
[2024-11-17] MEDS: Ringers Lactate 1,000 ML IV ONE (09:50)
[2024-11-17] MEDS: CEFAZOLIN SODIUM 1 GM/VIAL ONE (11:45)
[2024-11-17] MEDS: BUPIVACAINE 0.25% PF 10 ML VIAL ONE (11:57)
--- NOTE | 2024-11-17 12:21 | P.BOP ---
Preoperative diagnosis: Right knee medial meniscus tear, right knee osteoarthritis Postoperative diagnosis: Same Primary procedure: Right knee arthroscopic partial medial meniscectomy Hadoop Admin: NONE,NONE Estimated blood loss: 5 cc Specimen: None Findings: See dictation Anesthesia: General Complications: None Implants: None Fluids & blood products: Per anesthesia record Transferred to: Recovery Room Condition: Good
--- NOTE | 2024-11-17 12:26 | P.OP ---
Preoperative diagnosis: Right knee medial meniscus tear, right knee osteoarthritis Postoperative diagnosis: Same Primary procedure: Right knee arthroscopic partial medial meniscectomy Anesthesia: General Estimated blood loss: 5 cc Specimen: None Findings: See dictation Operative Technique: Indication For Procedure: Mariel is a 68-year-old female who presented to my clinic with signs, symptoms, and MRI findings consistent with a right knee medial meniscus tear and underlying right knee osteoarthritis. Patient failed conservative treatment measures. Given her pain and mechanical symptoms we elected to proceed with right knee arthroscopic partial medial meniscectomy. I discussed with the patient risks and benefits associated with operative and nonoperative treatment including continued pain from her osteoarthritis. She expressed understanding and elected to proceed with operative treatment. Description Of Procedure: After informed consent was obtained, the patient was identified in the preoperative holding area. The right lower extremity was marked. Patient was brought to the operating room transferred to the operative table in the supine fashion and placed under general anesthesia. The right lower extremity was then prepped and draped in usual sterile fashion. A time- out was initiated. The correct patient and procedure were performed and identified. The patient did receive preoperative prophylactic antibiotics. The right lower extremity was exsanguinated using an Esmarch and the tourniquet was inflated to 300 mmHg. Standard anterior medial and anterior lateral portals were created. The arthroscope was brought in via the anterolateral portal and a diagnostic arthroscopy was performed. 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 The arthroscope was then brought on the both medial and lateral gutters and there were no loose bodies found within the gutters. The arthroscope was first brought into the medial compartment with the patient was noted to have a complex tear of the posterior horn of the medial meniscus. A partial medial meniscectomy was performed using meniscal biters and arthroscopic shaver to smooth meniscal borders. Patient had some grade II chondromalacia changes noted to the medial femoral condyle. The arthroscope was then brought into the intercondylar notch where the patient was noted to have an intact ACL and PCL which were stable to probe. The arthroscope was then brought into the lateral compartment where the patient was noted to have a stable lateral meniscus without tear. There is no significant chondromalacia noted of the lateral femoral condyle or lateral tibial plateau. Arthroscopic instruments were then removed without complication. Wounds were then irrigated thoroughly with normal saline. Portals were approximated using a 3-0 Monocryl. Sterile dressings were applied. The patient was awakened and transferred to PACU in stable condition. Postoperative Plan: The patient will be weightbearing as tolerated on the right lower extremity. She will follow-up in clinic 1 week for wound check and dressing change. We will follow the post meniscectomy protocol 2 weeks postoperatively. Complications: None Implants: none Fluids & blood products: per anesthesia record Transferred to: Recovery Room Condition: Good
[2024-11-17] MEDS: FENTANYL CITR 100 MCG/2 ML ONE (12:43)
[2024-11-17] MEDS: TRAMADOL HCL 50 MG TAB ONE (13:20)
[2024-11-17] MEDS: ONDANSETRON 4 MG/2 ML VIAL ONE (14:15)
[2024-11-17 16:48] VITALS: BP 150/65; TEMP 97.3; O2SAT 97
== END ==
LOC: OR 09:32
PROVIDERS: ATTEND Orthopaedic Surgery Sports Medicine
PROC: 0SBC4ZZ Excision of Right Knee Joint, Percutaneous Endoscopic Approach (ICD-10-PCS; principal; 2024-11-17 11:15)
DX: S83.241A Other tear of medial meniscus, current injury, right knee, initial encounter (principal); M17.11 Unilateral primary osteoarthritis, right knee
CPT/HCPCS: 29881; J2704; J2003; J2250; J3010 ×2; J1100; J2405 ×2; J7120; J0690